=== PATIENT | male | born 1945 | race Caucasian/White ===

== ENCOUNTER 2022-05-21 13:14 | Emergency (ER) | payer OTHER ==
--- OUTSIDE RECORDS SUMMARY | 2022-05-21 13:16 | XMS REPORT | Continuity of Care Document ---
:1945 Author Organization [facility] t Address [address] [place] [address] Care Team Providers Name Role Phone BALJINDER DUMONT Attending Clinician Unavailable BALJINDER DUMONT Attending Clinician Unavailable ÁLVARO PERES Attending Clinician Unavailable Álvaro Novoa Attending Clinician BALJINDER DUMONT Admitting Clinician Unavailable Payers Payer Name Policy Type Policy Number Effective Date Expiration Date S ource [employer] MEDICARE O [id number] 2020 POS PPO 00:00:00 MEDICARE PLAN PPO [id number] - [employer] Problems This patient has no known problems. Allergies, Adverse Reactions, Alerts Allergy Allergy Status Severity Reaction(s) Onset Inactive Treating Comm ents Source Name Type Date Date Clinician LISINOPR DRUG Active High COUGH 2020-0 Univers [place] INGREDI 1- ity of 00:00: [place] 00 [facility] Lisinopr Propensi Active Cough 2020-0 Univer s il ty to 10-03 ity of adverse 00:00: [place] reaction 00 [facility] NO KNOWN Drug Active Univers ALLERGIE Class ity of S [facility] Social History Social Habit Start Date Stop Date Quantity Comments Source Exposure to Not sure [facility] SARS-CoV-2 (event) Medica l Branch Tobacco use and 2020-10-03 2020-10-03 Never used Universit y of [place] exposure 00:00:00 00:00:00 Medical [place] Sex Assigned At [address] [facility] 00[facility] Smoking Status Start Date Stop Date Source Former smoker 2020-10-03 00:00:00 2020-10-03 00:00:00 Universi ty [facility] [place] Medical [place] Medications Ordered Filled Start Stop Current Ordering Indication Dosage Frequency Signature Comments Components Source Medication Medication Date Date Medication? Clinician (SIG) Name Name metoprolol Yes 50mg Take 50 mg U nivers tartrate 50 - by mouth 2 it y of mg tablet 20:45: (two) [place] 21 times Medical daily. Branch atorvastati Yes 20mg Take 20 mg Univers n 20 mg 10-03 by mouth ity of tablet 20:45: at [place] 21 bedtime. Medical Branch vit 0 Yes Take by Univers C/ascorb - mouth. ity of sod/multivi 20:45: [place] t-min Medical (VITAMIN Branch C-MULTIVITA MIN-MINERAL ORAL) metoprolol Yes 50mg Take 50 mg U nivers tartrate 50 10-03 by mouth 2 it y of mg tablet 20:45: (two) [place] 21 times Medical daily. Branch atorvastati Yes 20mg Take 20 mg Univers n 20 mg 10-03 by mouth ity of tablet 20:45: at [place] 21 bedtime. Medical Branch vit Yes Take by Univers C/ascorb 10-03 mouth. ity of sod/multivi 20:45: [place] t-min Medical (VITAMIN Branch C-MULTIVITA MIN-MINERAL ORAL) metoprolol Yes 50mg Take 50 mg U nivers tartrate 50 10-03 by mouth 2 it y of mg tablet 20:45: (two) [place] 21 times Medical daily. Branch atorvastati Yes 20mg Take 20 mg Univers n 20 mg 10-03 by mouth ity of tablet 20:45: at [place] 21 bedtime. Medical Branch vit 0 Yes Take by Univers C/ascorb 10-03 mouth. ity of sod/multivi 20:45: [place] t-min 21 Medical (VITAMIN Branch C-MULTIVITA MIN-MINERAL ORAL) Vital Signs Vital Name Observation Time Observation Value Comments Source Systolic blood 2020-10-03 20:43:00 108 mm[Hg] Univjacob obrien of [place] pressure Medical [place] Diastolic blood 2020-10-03 20:43:00 68 mm[Hg] Unive rsjenna of [place] pressure Medical Branch Heart rate 2020-10-03 20:43:00 77 /min General acute hospital Body height 2020-10-03 20:43:00 177.8 cm General acute hospital Body weight 2020-10-03 20:43:00 102.967 kg General acute hospital BMI 2020-10-03 20:43:00 32.57 kg/m2 General acute hospital Procedures Procedure Date / Time Performed Performing Clinician Sourc e XR FEMUR 2 VW RIGHT 2020-10-03 21:17:35 Álvaro Peres General acute hospital Plan of Care Planned Activity Planned Date Details Comments Source Future Scheduled 2022-05-14 INFLUENZA VACCINE (#1) [facility] 00:00:00 [code = INFLUENZA Medical Ce nter VACCINE (#1)] Future Scheduled 2021-09-[address] [facility] 00:00:00 WELLNESS (YEAR 2 or Medical Center FIRST YEAR if no IPPE) [code = MEDICARE ANNUAL WELLNESS (YEAR 2 or FIRST YEAR if no IPPE)] Future Scheduled 2021-09-[address] [facility] 00:00:00 (12+) [code = Medical Center DEPRESSION SCREENING (12+)] Future Scheduled 2021-09-13 FALLS RISK SCREENING [facility] 00:00:00 [code = FALLS RISK Medical C enter SCREENING] Future Scheduled 2012 PNEUMOCOCCAL 65+ YRS ([address] [facility] 00:00:00 - PCV) [code = Medical Cente r PNEUMOCOCCAL 65+ YRS (1 - PCV)] Future Scheduled 1997 SHINGLES VACCINES ([address] [facility] 00:00:00 2) [code = SHINGLES Medical Center VACCINES (1 of 2)] Future Scheduled 1966 DTAP/TDAP/TD VACCINES [facility] 00:00:00 (1 - Tdap) [code = Medical C enter DTAP/TDAP/TD VACCINES (1 - Tdap)] Future Scheduled 1965 HEPATITIS C SCREENING [facility] 00:00:00 [code = HEPATITIS C Medical Center SCREENING] Future Scheduled 1948-03-26 COVID-19 VACCINE (#1) [facility] 00:00:00 [code = COVID-[address] VACCINE (#1)] Future Scheduled 1947 CT Colonography (combo) [facility] 00:00:00 [code = CT Colonography [facility] (combo)] Future Scheduled 1947 Screening for malignant [facility] 00:00:00 neoplasm of colon Medical Ce nter (procedure) [code = 258386071] Future Scheduled 1947 Screening for malignant [facility] Test 00:00:00 neoplasm of colon Medical Ce nter (procedure) [code = 999116156] Future Scheduled 1947 Screening for malignant [facility] Test 00:00:00 neoplasm of colon Medical Ce nter (procedure) [code = 342399288] Future Scheduled 1947 Screening for malignant [facility] Test 00:00:00 neoplasm of colon Medical Ce nter (procedure) [code = 928255906] Future Scheduled 1945 Sigmoidoscopy [code = [facility] 00:00:00 Sigmoidoscopy] Medical Cente r Encounters Start End Encounter Admission Attending Care Care Encounter Source Date/Time Date/Time Type Type Clinicians Facility Department ID 2021-10-27 Outpatient VIRGINIA ANGEL Surgery [id number] [facility] 16:59:33 BALJINDER 2021-10-20 2021-10-20 Outpatient MARA DUMONT [facility] [id number] [facility] 08:31:10 12:26:20 BALJINDER barton of Medicin e 2021-05-14 2021-05-14 Outpatient Zelda PERES [facility] [id number] Univers 14:30:00 14:30:00 ÁLVARO [id number] [facility] 2021-05-14 2021-05-14 Outpatient Zelda PERES [facility] [id number] Univers 14:30:00 14:30:00 ÁLVARO [facility] 2020-10-03 2020-10-03 [facility] [id number] Univers 15:17:35 23:59:00 Encounter Álvaro [facility] [id number] ity of Surgical [id number] [place] as Specialti [id number] [facility] [address] [place] [address] 2020-10-03 2020-10-03 Outpatient R JA [facility] [id number] Univers 15:00:00 15:00:00 ÁLVARO [facility] 2020-10-03 2020-10-03 Office Ja SCCLEMENTE [id number] Univers 14:31:25 14:46:25 Visit Álvaro [facility] [id number] it y of Surgical [id number] [place] as Specialti [id number] Id dical es [address] [place] Des[place] Results Test Description Test Time Test Comments Results Result Sour e Comments XR FEMUR 2 VW 2020-10-03 No signs of University of RIGHT 21:17:52 fracture or [place] Medical dislocation no Branch soft tissue masses or lesions noted
--- NOTE | 2022-05-21 14:20 | RAD REPORT ---
EXAM DESCRIPTION: US - Extremity Venous Uni Ltd - 05/21/2022 1:49 pm CLINICAL HISTORY: PAIN COMPARISON: None. TECHNIQUE: Real-time sonographic evaluation of the right lower extremity deep venous systems was per formed. FINDINGS: Normal compressibility, flow augmentation, phasic flow and spontaneous flow are identified in the right lower extremity common femoral, superficial femoral, popliteal and posterior tibial vei ns. No intraluminal filling defects seen. IMPRESSION: No DVT in the right lower extremity.
[2022-05-21 14:21] LABS: Absolute Lymphocytes (CBC) 1.4 K/uL (0.7-4.9); Hematocrit 46.8 % (39.6-49.0); Lymphocytes % 20.3 % (15.3-44.8); MPV 7.9 fL (7.6-11.3); RBC Red Blood Cell Count 5.71 M/uL (4.33-5.43)
[2022-05-21 14:42] LABS: Albumin 3.9 g/dL (3.4-5.0); Bilirubin Direct 0.3 mg/dL (0-0.2); Magnesium 2.1 mg/dL (1.8-2.4); Potassium 3.8 mmol/L (3.5-5.1); Troponin High Sensitivity 5.5 pg/mL (<58.9)
[2022-05-21] MEDS ORDERED: LEVALBUTEROL 1.25 MG/3 ML NEB ONE (15:02)
[2022-05-21 15:06] LABS: Protime INR 0.97
--- NOTE | 2022-05-21 16:07 | RAD REPORT ---
EXAM DESCRIPTION: CT - Chest For Pe Angio - 05/21/2022 3:31 pm CLINICAL HISTORY: shortness of breath COMPARISON: No comparisons TECHNIQUE: Dynamically enhanced 3 mm thick images of the chest were obtained during administration o f approximately 150mL Isovue 370 IV contrast. Coronal and oblique MIP reconstruction images were gene rated and reviewed. Exam utilizes a protocol to evaluate the pulmonary arterial tree. All CT scans are performed using dose optimization technique as appropriate and may include automated exposure control or mA/KV adjustment according to patient size. FINDINGS: No pulmonary emboli are identified. The aorta as imaged shows no acute or suspicious finding. No pericardial thickening or effusion. A grossly 6 centimeter area of airspace opacification is present in the medial left lung base. The am orphous configuration is most consistent with an acute pneumonia. This could be infectious or aspirat ion. A few punctate areas of airspace opacification are scattered elsewhere in the lower lung cross. Minimal areas of nodularity are present less than 5 mm in size. No pleural effusions. A few small ar eas of noncalcified pleural plaquing or thickening seen. No mediastinal or hilar suspicious masses. No chest wall masses or abnormal axillary lymphadenopathy. IMPRESSION: No pulmonary emboli identified. Airspace opacification in the medial left lung base consistent with pneumonia. This could be infectio us or possibly aspiration.
--- NOTE | 2022-05-21 16:14 | RAD REPORT ---
EXAM DESCRIPTION: RAD - Chest Single View - 05/21/2022 3:11 pm CLINICAL HISTORY: SOB COMPARISON: Two view chest 03/12/2022 TECHNIQUE: AP portable chest image was obtained 05/21/2022 3:11 pm . FINDINGS: No peripheral infiltrate or mass. Surgical clips overlie the chest and mediastinum. Inters titial pattern matches comparison. Failure and volume overload are not seen. Heart and vasculature are normal. No measurable pleural effusion and no pneumothorax. No acute bony abnormality seen. No acute aortic findings suspected. IMPRESSION: No acute cardiopulmonary process. No significant change from comparison study.
--- NOTE | 2022-05-21 16:39 | EDPHYS ---
Physician Documentation [facility] Name: Romero Schilling Age: 76 yrs Sex: Male : 1945 Arrival Date: 05/21/2022 Time: 13:17 Bed 10 Private MD: ED Physician Jeff Nino HPI: 05/21 16:35 This 76 yrs old Male presents to ER via Ambulatory with complaints of Breathing jmm Difficulty. 16:35 The patient has shortness of breath at rest. Onset: The symptoms/episode began/occurred jmm gradually, 1 week(s) ago. Duration: The symptoms are continuous, and are steadily getting worse. The patient's shortness of breath is aggravated by exertion. Associated signs and symptoms: Pertinent positives: non-productive cough, Pertinent negatives: fever. The patient has not experienced similar symptoms in the past. Historical: - Allergies: 13:27 No Known Allergies; ld1 - Home Meds: 13:27 metoprolol tartrate 25 mg Oral tab 1 tab 2 times per day [Active]; atorvastatin 10 mg ld1 oral tab 1 tab once daily [Active]; Cholestyramine Light 4 gram oral powd 1 scoop 2 times per day [Active]; - PMHx: 13:27 Hypertensive disorder; Hypercholesterolemia; ld1 13:28 Myocardial infarction; ld1 - PSHx: 13:27 Heart bypass; ld1 - Immunization history:: Adult Immunizations up to date, Client reports receiving the 2nd dose of the Covid vaccine. - Social history:: Smoking status: Patient denies any tobacco usage or history of. Patient uses alcohol, occasionally. ROS: 16:35 Constitutional: Positive for fatigue. jmm 16:35 Respiratory: Positive for cough, shortness of breath. 16:35 MS/extremity: Positive for pain. 16:35 All other systems are negative. Exam: 15:45 ECG was reviewed by the Attending Physician. jmm 16:35 Constitutional: This is a well developed, well nourished patient who is awake, alert, jmm and in no acute distress. Head/Face: atraumatic. Eyes: EOMI, no conjunctival erythema appreciated ENT: Moist Mucus Membranes Neck: Trachea midline, Supple Chest/axilla: Normal chest wall appearance and motion. Cardiovascular: Regular rate and rhythm. No edema appreciated Respiratory: Normal respirations, no respiratory distress appreciated Abdomen/GI: Non distended Back: Normal ROM Skin: General appearance color normal 16:35 Musculoskeletal/extremity: No erythema or induration appreciated of the right thigh, compartments are soft, full dorsalis pedis pulse, neurovascular intact. 16:35 Skin: Appearance: Color: normal in color. 16:35 Neuro: Orientation: is normal, Mentation: is normal, Memory: is normal. 16:35 Psych: Behavior/mood is pleasant, cooperative. Vital Signs: 13:28 BP 119 / 55; Pulse 77; Resp 18; Temp 97.5(TE); Pulse Ox 95% on R/A; Weight 106.14 kg; ld1 Height 5 ft. 10 in. (177.80 cm); Pain 0/10; 15:26 BP 116 / 56; Pulse 78; Resp 18; Pulse Ox 97% on R/A; eh3 13:28 Body Mass Index 33.58 (106.14 kg, 177.80 cm) ld1 MDM: 13:31 Patient medically screened. randall 16:37 Data reviewed: vital signs, nurses notes. Counseling: I had a detailed discussion with randall the patient and/or guardian regarding: the historical points, exam findings, and any diagnostic results supporting the discharge/admit diagnosis, lab results, radiology results, the need for outpatient follow up, to return to the emergency department if symptoms worsen or persist or if there are any questions or concerns that arise at home. ED course: Vital signs are normal. CT revealed a pneumonia most likely. Patient prescribed oral antibiotics and otherwise given strict return precautions. Patient understood agrees plan of care.. 05/21 13:26 Order name: Basic Metabolic Panel; Complete Time: 14:49 05/21 13:26 Order name: CBC with Diff; Complete Time: 14:33 05/21 13:26 Order name: LFT's; Complete Time: 14:49 05/21 13:26 Order name: Magnesium; Complete Time: 14:49 05/21 13:26 Order name: NT PRO-BNP; Complete Time: 14:49 05/21 13:26 Order name: PT-INR; Complete Time: 15:10 05/21 13:26 Order name: Troponin HS; Complete Time: 14:49 05/21 13:26 Order name: XRAY Chest (1 view); Complete Time: 16:20 05/21 13:26 Order name: US Extremity Venous Unilateral Ltd; Complete Time: 14:22 05/21 13:32 Order name: SARS-COV-2 RT PCR (Document "Date of Onset" if Symptomatic); Complete Time: [facility] 15:05/21 13:32 Order name: Influenza Screen (a \\T\\ B); Complete Time: 14:49 [facility] 05/21 15:11 Order name: CT Chest For PE Angio; Complete Time: 16:08 [facility] 05/21 13:26 Order name: EKG; Complete Time: 13:26 05/21 13:26 Order name: Cardiac monitoring; Complete Time: 14:10 [facility] 05/21 13:26 Order name: EKG - Nurse/Tech; Complete Time: 14:52 [facility] 05/21 13:26 Order name: IV Saline Lock; Complete Time: 14:09 [facility] 05/21 13:26 Order name: Labs collected and sent; Complete Time: 14:09 [facility] 05/21 13:26 Order name: O2 Per Protocol; Complete Time: 14:09 05/21 13:26 Order name: O2 Sat Monitoring; Complete Time: 14:09 ld EC:45 Rate is 76 beats/min. Rhythm is regular. QRS [place] is Normal. MO interval is normal. QRS jmm interval is normal. QT interval is normal. T waves are Flattened in lead III. No ST changes noted. Reviewed by me. Administered Medications: 14:55 Drug: Xopenex (levalbuterol) (3) 1.25 mg Route: Inhalation; 3 15:26 Follow up: Response: Marked relief of symptoms 3 16:31 CANCELLED (Duplicate Order): Rocephin (cefTRIAXone) 1 grams IV at calculated rate once; jmm Given slow IV push per pharmacy instructions 16:50 Drug: Zithromax (azithromycin) 500 mg Route: PO; 3 17:12 Follow up: Response: No adverse reaction 3 16:50 Drug: Rocephin (cefTRIAXone) 1 grams Route: IM; Site: right ventrogluteal; eh3 17:13 Follow up: Response: No adverse reaction 3 Disposition: 16:22 Co-signature as Attending Physician, Jeff Nino DO I agree with the assessment and ms3 plan of care. Disposition Summary: 05/21/22 16:38 Discharge Ordered Location: Home [facility] Condition: Stable [facility] Diagnosis - Community-acquired pneumonia [facility] Followup: [facility] - With: Private Physician - When: 2 - 3 days - Reason: Recheck today's complaints, Continuance of care, Re-evaluation by your physician Discharge Instructions: - Discharge Summary Sheet [facility] - Community-Acquired Pneumonia, Adult [facility] Forms: - Medication Reconciliation Form [facility] - Thank You Letter [facility] - Antibiotic Education [facility] - Prescription Opioid Use [facility] Prescriptions: - cefdinir 300 mg Oral capsule - take 1 capsule by ORAL route every 12 hours for 10 days; 20 capsule; Refills: jm 0, Product Selection Permitted - Zithromax Z-Liborio 250 mg Oral Tablet - take 1 tablet by ORAL route as directed for 5 days Day 1 - take two (2) tablets [facility] one time. Day 2, 3, 4 , 5 take one (1) tablet once daily.; 6 tablet; Refills: 0, Product Selection Permitted - albuterol sulfate 90 mcg/actuation Inhalation HFA aerosol inhaler - inhale 2 puff by INHALATION route every 4 hours; 1 Pump; Refills: 0, Product jm Selection Permitted Signatures: Dispatcher [employer] EDMS Anders Ren PA PA jmm Sims, Marcus, DO DO ms3 Lindsey Hahn, RN RN ld1 Silvia Painter RN RN eh3 Corrections: (The following items were deleted from the chart) 16:31 16:09 Rocephin (cefTRIAXone) 1 grams IV at calculated rate once; Given slow IV push per [facility] pharmacy instructions ordered. [facility]
--- NOTE | 2022-05-21 16:39 | ER ---
Nurse's Notes [facility] Name: Romero Schilling Age: 76 yrs Sex: Male : 1945 Arrival Date: 05/21/2022 Time: 13:17 Bed 10 Private MD: Diagnosis: Community-acquired pneumonia Presentation: 05/21 13:28 Chief complaint: Patient states: Pt was at Dr Perez office. Pt c/o SOB - Dr. Office ld1 sent pt to ER due to low O2. "Concerned about blood clot in lungs." SpO2 93% RA upon arrival to ER. Coronavirus screen: At this time, the client does not indicate any symptoms associated with coronavirus-19. Ebola Screen: No symptoms or risks identified at this time. Initial Sepsis Screen: Does the patient meet any 2 criteria? No. Patient's initial sepsis screen is negative. Does the patient have a suspected source of infection? No. Patient's initial sepsis screen is negative. Risk Assessment: Do you want to hurt yourself or someone else? Patient reports no desire to harm self or others. Onset of symptoms was May 21, 2022. 13:28 Method Of Arrival: Ambulatory ld1 13:28 Acuity: LEANDER 3 ld1 Triage Assessment: 13:28 General: Appears in no apparent distress. comfortable, Behavior is calm, cooperative, ld1 appropriate for age. Pain: Denies pain. EENT: No signs and/or symptoms were reported regarding the EENT system. Neuro: Level of Consciousness is awake, alert, obeys commands, Oriented to person, place, time, situation. Cardiovascular: Capillary refill < 3 seconds Patient's skin is warm and dry. Respiratory: Reports shortness of breath at rest on exertion Airway is patent Respiratory effort is even, unlabored, Onset: The symptoms/episode began/occurred yesterday, the patient has mild shortness of breath. GI: Abdomen is round non-distended. Historical: - Allergies: 13:27 No Known Allergies; ld1 - Home Meds: 13:27 metoprolol tartrate 25 mg Oral tab 1 tab 2 times per day [Active]; atorvastatin 10 mg ld1 oral tab 1 tab once daily [Active]; Cholestyramine Light 4 gram oral powd 1 scoop 2 times per day [Active]; - PMHx: 13:27 Hypertensive disorder; Hypercholesterolemia; ld1 13:28 Myocardial infarction; ld1 - PSHx: 13:27 Heart bypass; ld1 - Immunization history:: Adult Immunizations up to date, Client reports receiving the 2nd dose of the Covid vaccine. - Social history:: Smoking status: Patient denies any tobacco usage or history of. Patient uses alcohol, occasionally. Screenin:11 Abuse screen: Denies threats or abuse. Denies injuries from another. Nutritional eh3 screening: No deficits noted. Tuberculosis screening: No symptoms or risk factors identified. Fall Risk None identified. Assessment: 17:08 Reassessment: Patient is alert, oriented x 3, equal unlabored respirations, skin eh3 warm/dry/pink. Patient states symptoms have improved. Cardiovascular: Rhythm is regular. Respiratory: Airway is patent Respiratory effort is even, unlabored, Breath sounds are clear bilaterally. Vital Signs: 13:28 BP 119 / 55; Pulse 77; Resp 18; Temp 97.5(TE); Pulse Ox 95% on R/A; Weight 106.14 kg; ld1 Height 5 ft. 10 in. (177.80 cm); Pain 0/10; 15:26 BP 116 / 56; Pulse 78; Resp 18; Pulse Ox 97% on R/A; eh3 13:28 Body Mass Index 33.58 (106.14 kg, 177.80 cm) ld1 ED Course: 13:17 Patient arrived in ED. rg4 13:21 Jeff Nino DO is Attending Physician. ms3 13:26 Anders Ren PA is PHCP. ld1 13:28 Arm band placed on right wrist. ld1 13:30 Triage completed. ld1 13:41 US Extremity Venous Unilateral Ltd In Process Unspecified. EDMS 14:09 Influenza Screen (a \\T\\ B) Sent. eh3 14:09 SARS-COV-2 RT PCR (Document "Date of Onset" if Symptomatic) Sent. eh3 14:10 Basic Metabolic Panel Sent. eh3 14:10 CBC with Diff Sent. eh3 14:10 LFT's Sent. eh3 14:10 Magnesium Sent. eh3 14:10 NT PRO-BNP Sent. eh3 14:10 PT-INR Sent. eh3 14:10 Troponin HS Sent. eh3 15:13 XRAY Chest (1 view) In Process Unspecified. EDMS 15:33 CT Chest For PE Angio In Process Unspecified. EDMS 15:37 Marlys Martínez, RN is Primary Nurse. iw 17:11 Patient has correct armband on for positive identification. Bed in low position. Call eh3 light in reach. Side rails up X2. Adult w/ patient. 17:11 No provider procedures requiring assistance completed. IV discontinued, intact, eh3 bleeding controlled, No redness/swelling at site. Pressure dressing applied. Administered Medications: 14:55 Drug: Xopenex (levalbuterol) (3) 1.25 mg Route: Inhalation; eh3 15:26 Follow up: Response: Marked relief of symptoms eh3 16:31 CANCELLED (Duplicate Order): Rocephin (cefTRIAXone) 1 grams IV at calculated rate once; randall Given slow IV push per pharmacy instructions 16:50 Drug: Zithromax (azithromycin) 500 mg Route: PO; eh3 17:12 Follow up: Response: No adverse reaction eh3 16:50 Drug: Rocephin (cefTRIAXone) 1 grams Route: IM; Site: right ventrogluteal; eh3 17:13 Follow up: Response: No adverse reaction eh3 Medication: 17:12 VIS not applicable for this client. eh3 Outcome: 16:38 Discharge ordered by MD. [facility] 17:11 Discharged to home ambulatory, with family. eh3 17:11 Condition: stable 17:11 Discharge instructions given to patient, family, Instructed on discharge instructions, follow up and referral plans. medication usage, Demonstrated understanding of instructions, follow-up care, medications, Prescriptions given X 3. 17:12 Patient left the ED. eh3 Signatures: Dispatcher [employer] EDMS Anders Ren PA PA jmm Williams, Irene, RN RN iw Caitlin Foote rg4 Jeff Nino DO DO ms3 Lindsey Hahn RN RN ld1 Silvia Painter RN RN eh3 Corrections: (The following items were deleted from the chart) 17:11 17:08 Respiratory: Airway is patent Respiratory effort is even, unlabored, Breath eh3 sounds with wheezes bilaterally. eh3
[2022-05-21] MEDS ORDERED: CEFTRIAXONE 1000 MG/VIAL ONE (16:50)
[2022-05-21] MEDS ORDERED: AZITHROMYCIN 250 MG TAB ONE (16:50)
[2022-05-21 18:06] VITALS: TEMP 97.5
[2022-05-21 18:08] VITALS: BP 116/56; O2SAT 97
--- NOTE | 2022-05-22 13:57 | EKG ---
Test Date: 2022-05-21 Test Time: 14:22:46 Larry Operator: POORNIMA MEASUREMENT RESULTS: Intervals: Rate: 76 OH: 204 QRSD: 80 QT: 376 QTc: 423 [place]: P: 43 OH: 204 QRS: 14 T: 27 INTERPRETIVE STATEMENTS: Normal sinus rhythm with sinus arrhythmia Inferior infarct, age undetermined Possible Anterior infarct, age undetermined Abnormal ECG Compared to ECG 04/10/2006 03:15:24 No significant changes Electronically Signed On 05-22-22 13:55:31 CDT by Raudel Mazariegos
== END 2022-05-21 17:12 | disposition home or self-care (01) ==
LOC: ER 13:14
DX: J18.8 Other pneumonia, unspecified organism (principal); Z20.822 Contact with and (suspected) exposure to COVID-19; I10 Essential (primary) hypertension; I25.2 Old myocardial infarction; Z95.1 Presence of aortocoronary bypass graft
CPT/HCPCS: 93005; 85025; 80048; 36415; 83735; 85610; 80076; 84484; 83880; 87804 ×2; 71275; 71045; 93971; 96372; 99284; U0003; Q9967; J7614

== ENCOUNTER 2023-01-30 17:51 | Inpatient (IN) | payer OTHER ==
--- OUTSIDE RECORDS SUMMARY | 2023-01-30 17:55 | XMS REPORT | Continuity of Care Document ---
:1945 Author Organization [facility] t Address [address] [place] [address] Care Team Providers Name Role Phone BALJINDER DUMONT Attending Clinician Unavailable KIM FUENTES Attending Clinician Unavailable CRISTINA HOOPER Attending Clinician Unavailable ASHANTI ROBLES Attending Clinician Unavailable LAB90 Attending Clinician Unavailable BALJINDER DUMONT Attending Clinician Unavailable ÁLVARO SÁNCHEZ Attending Clinician Unavailable Álvaro Novoa Attending Clinician BALJINDER DUMONT Admitting Clinician Unavailable Payers Payer Name Policy Type Policy Number Effective Date Expiration Date S ource AETNA MEDICARE HMO [id number] 2020 POS PPO 00:00:00 AETNA [place] P[place] 5 [id number] 2023 00:00:00 MEDICARE PLAN PPO [id number] - [employer] Problems Condition Condition Condition Status Onset Resolution Last Treating Co mments Source Name Details Category Date Date Treatment Clinician Date History of History of Disease Active Overview : Sloane detached detached 5-16 Formattin Sey bold retina retina 00:00: g of this - repair repair 00 note Externa might be l different from the original. Right side. Surgery in the past Hyperlipid Hyperlipid Disease Active K elsey emia emia 5-16 Seybold 00:00: - 00 Externa l SOB SOB Disease Active Sloane (shortness (shortness 5-16 Se ybold of breath) of breath) 00:00: - on on Externa exertion exertion l Chronic Chronic Disease Active [place]ane obstructiv obstructiv 5-16 Se ybold e e 00:00: - pulmonary pulmonary 00 Exte rna disease disease l with acute with acute exacerbati exacerbati on on Hypertensi Hypertensi Disease Active K elsey on on 01-26 Seybold 00:00: - 00 Externa l GERD GERD Disease Active Sloane (gastroeso (gastroeso 01-26 Se ybold phageal phageal 00:00: - reflux reflux 00 Externa disease) disease) l Glaucoma Glaucoma Disease Active Fletcherse y 01-26 Seybold 00:00: - 00 Externa l CAD CAD Disease Active Overview: Sloane (coronary (coronary 09-13 Formattin S eybold artery artery 00:00: g of this - disease) disease) 00 note [employer] a of artery of artery might be l bypass bypass different graft graft from the original. CABG 4 vessel in 2206 History of History of Disease Active K elseema four four 09-13 Seybold vessel vessel 00:00: - coronary coronary 00 [employer] a artery artery l bypass bypass graft graft Allergies, Adverse Reactions, Alerts Allergy Allergy Status Severity Reaction(s) Onset Inactive Treating Comm ents Source Name Type Date Date Clinician Lisinopr Propensi Active Cough S[place]ane il ty to 01-26 Seybold adverse 00:00: - reaction 00 Externa s l LISINOPR DRUG Active High COUGH Univers IL INGREDI 1-21 ity of 00:00: [place] 00 [facility] Lisinopr Propensi Active Cough Univer s il ty to -21 ity of adverse 00:00: [place] reaction 00 Medical s Branch Candido Propensi Active Cough [place] Inhibito ty to 03-24 Seybold rs adverse 00:00: - reaction 00 Externa s l NO KNOWN Drug Active Univers ALLERGIE Class ity of S [facility] Social History Social Habit Start Date Stop Date Quantity Comments Source Gender identity Sloane Ceballos ybold - External Sexual orientation Sloane Pierson - External History of tobacco Cigarette Smoker Sloane Pierson - use External Exposure to Not sure University of SARS-CoV-2 (event) [facility] Cigarette 2023-01-26 2023-01-26 Sloane Pierson - pack-years 00:00:00 00:00:00 External Tobacco use and 2023-01-26 2023-01-26 Smokeless tobacco Sourav juarez Seybold - exposure 00:00:00 00:00:00 non-user External Alcohol intake 2023-01-26 2023-01-26 Current drinker Asher Pierson - 00:00:00 00:00:00 of alcohol External (finding) History of Social 2023-01-26 2023-01-26 Sloane Ceballosybold - function 00:00:00 00:00:00 External Education 2023-01-26 2023-01-26 13 Sloane Seybold - 00:00:00 00:00:00 External Tobacco Comment 2023-01-26 2023-01-26 Quit 10 years ago Sourav bostonimani ybold - 00:00:00 00:00:00 External Alcohol Comment 2023-01-26 2023-01-26 occasional beer Marlys imani Ceballosybold - 00:00:00 00:00:00 External Cigarettes smoked 2023-01-26 2023-01-26 Sloane Ceballosybold - current (pack per 00:00:00 00:00:00 Externa l day) - Reported Sex Assigned At [address] 00:00[facility]00 00:00:00 [facility] Smoking Status Start Date Stop Date Source Ex-smoker 2023-01-26 00:00:00 2023-01-26 00:00:00 [place] - External Medications Ordered Filled Start Stop Current Ordering Indication Dosage Frequency Signature Comments Components Source Medication Medication Date Date Medication? Clinician (SIG) Name Name Venkata No [id number] 40mg S[place]ane estrada 01-26 Seybold Acetonide 16:15: 16:26 - (KENALOG) 00 :00 Externa 40 mg/mL l Triamcinmundo 2022- No [id number] 40mg 40 mg, Sloane estrada 01-26 intramuscu Seybold Acetonide 16:15: 16:26 lar, ONCE, - (KENALOG) 00 :00 On Tue Externa 40 mg/mL 01/26/23 at l 1115, For 1 dose Metoprolol Yes 25mg Take 0.5 Fletcher sey Tartrate 5-16 tablets Seybold (LOPRESSOR) 10:39: (25 mg - 50 MG oral 40 total) by Exte rna Tablet mouth 2 l times daily Atorvastati Yes 20mg Take 1 Marlys ey n Calcium 5-16 tablet (20 Seyb old 20 MG oral 10:39: mg total) - Tablet 40 by mouth Externa daily l Cholestyram Yes 4g Take 1 Marlys ey ine 4 5-16 packet (4 Seybold GM/DOSE 10:39: g total) - oral Powder 40 by mouth Exte rna daily l Turmeric Yes 1{capsu Take 1 Marlys ey 500 MG oral 5-16 le} capsule by Se ybold Capsule 10:39: mouth - 40 daily Externa l Ascorbic Yes 1000mg Take 1 Kelse y Acid 5-16 tablet Seybold (Vitamin C) 10:39: (1,000 mg - 1000 MG 40 total) by Externa oral Tablet mouth l daily Esomeprazol Yes 20mg Take 1 Marlys ey e Magnesium 5-16 capsule Seybo ld 20 MG oral 10:39: (20 mg - Delayed 40 total) by Externa Release mouth l Capsule every morning (before breakfast) Aspirin 81 Yes 81mg Take 1 Kelse y MG oral 5-16 tablet (81 Seybol d Tablet 10:39: mg total) - Delayed 40 by mouth Externa Response daily l [place]-3 Yes 1{capsu Take 1 Kelse y 1000 MG 5-16 le} capsule by Seybol d oral 10:39: mouth - Capsule 40 daily Externa l Timolol Yes 1[drp] Place 1 Kelse y Maleate Gel 5-16 drop into Sey bold 0.25 % 10:39: the left - ophthalmic 40 eye daily Exte rna Gel Forming l Solution prednisoLON Yes 1[drp] Place 1 K elsey E Acetate 1 5-16 drop into Sey bold % 10:39: the right - ophthalmic 40 eye daily Exte rna Suspension l Brimonidine Yes 1[drp] Place 1 K elsey Tartrate-Ti 5-16 drop into Sey bold molol 10:39: the right - 0.2-0.5 % 40 eye daily Exter na ophthalmic l Solution Multiple Yes 1{capsu Take 1 Marlys ey Vitamins-Mi 5-16 le} capsule by Se ta nerals 10:39: mouth - (PRESERVISI 40 daily Externa ON AREDS 2 l OR) Fluticasone Yes [id number] 1{puff} Inhale 1 [place]ane -Salmeterol 5-16 puff into [place] escobar (Advair 00:00: the lungs - Diskus) 00 2 times Externa 250-50 daily l MCG/ACT inhalation AEROSOL POWDER, BREATH ACTIVATED Albuterol Yes [id number] 2{puff} Q.25D Inhale 2 [place]ane HFA 108 (90 5-16 puffs into Se ta Base) 00:00: the lungs - MCG/ACT IN 00 every 6 [employer] a AERS hours as l needed for wheezing metoprolol Yes 50mg Take 50 mg U nivers tartrate 50 10-03 by mouth 2 it y of mg tablet 20:45: (two) [place] [id number] times Medical daily. Branch atorvastati Yes 20mg Take 20 mg Univers n 20 mg 10-03 by mouth ity of tablet 20:45: at [place] [address] bedtime. Medical Branch vit Yes Take by Univers C/ascorb - mouth. ity of sod/multivi 20:45: [place] t-min 21 Medical (VITAMIN Branch C-MULTIVITA MIN-MINERAL ORAL) metoprolol Yes 50mg Take 50 mg U nivers tartrate 50 10-03 by mouth 2 it y of mg tablet 20:45: (two) [place] 21 times Medical daily. Branch atorvastati Yes 20mg Take 20 mg Univers n 20 mg 10-03 by mouth ity of tablet 20:45: at [place] 21 bedtime. Medical Branch vit Yes Take by Univers C/ascorb - mouth. ity of sod/multivi 20:45: [place] t-min 21 Medical (VITAMIN Branch C-MULTIVITA MIN-MINERAL ORAL) metoprolol Yes 50mg Take 50 mg U nivers tartrate 50 - by mouth 2 it y of mg tablet 20:45: (two) [place] 21 times Medical daily. Branch atorvastati Yes 20mg Take 20 mg Univers n 20 mg 10-03 by mouth ity of tablet 20:45: at [place] 21 bedtime. Medical Branch vit Yes Take by Univers C/ascorb 10-03 mouth. ity of sod/multivi 20:45: [place] t-min 21 Medical (VITAMIN Branch C-MULTIVITA MIN-MINERAL ORAL) Immunizations Ordered Immunization Filled Immunization Date Status Commen ts Source Name Name Seasonal Trivalent 2019-07-06 Completed Solane Pierson Influenza Vaccine, 00:00:00 - Exte rnal Adjuvanted, Preserve Pneumococcal Vaccine, 2019-07-06 Completed Fletcher Pierson Polysaccharide 00:00:00 - External Tdap- (Boostrix, 2019-01-04 Completed Sloane diallobougo Adacel) 00:00:00 - External Seasonal Trivalent 2018-06-29 Completed Sloane Pierson Influenza Vaccine, 00:00:00 - Exte rnal Adjuvanted, Preserve Pneumococcal Vaccine, 2018-06-29 Completed Fletcher Pierson Conjugate 13 00:00:00 - External Influenza Virus 2016-09-23 Completed Sloane ta Vaccine, High Dose, 00:00:00 - Ext ernal Age 65 And Up Influenza Virus 2013-11-02 Completed Sloane jimenezold Vaccine, High Dose, 00:00:00 - Ext ernal Age 65 And Up Shingles SQ 2013-03-13 Completed Sloane Roberto d (Zostavax) 00:00:00 - External Influenza Virus 2012-09-16 Completed [place]ane jimenezold Vaccine, Unspecified 00:00:00 - Ex ternal Formulation pneumococcal, 2011-06-30 Completed Sloane Nolasco old unspecified 00:00:00 - External formulation Influenza Virus 2011-06-24 Completed S[place]ane jimenezold Vaccine, Unspecified 00:00:00 - Ex ternal Formulation Influenza Virus 2010-07-01 Completed [place]ane jimenezold Vaccine, Unspecified 00:00:00 - Ex ternal Formulation Influenza Virus 2008-07-14 Completed [place] jimenezold Vaccine, Unspecified 00:00:00 - Ex ternal Formulation Influenza Virus 2006-06-20 Completed [place] jimenezold Vaccine, Unspecified 00:00:00 - Ex ternal Formulation Vital Signs Vital Name Observation Time Observation Value Comments Source Systolic blood 2023-01-26 15:35:00 130 mm[Hg] Sloane Ceballosybold - pressure External Diastolic blood 2023-01-26 15:35:00 62 mm[Hg] Asher boo Seybold - pressure External Heart rate 2023-01-26 15:35:00 89 /min Sloane Matthews eybold - External Body temperature 2023-01-26 15:35:00 36.56 Xin Marlys diallo Seybold - External Body height 2023-01-26 15:35:00 177.8 cm S[place]ane diallobold - External Body weight 2023-01-26 15:35:00 104.781 kg Sloane Matthews eybold - External BMI 2023-01-26 15:35:00 33.15 kg/m2 Sloane Matthews eybold - External Systolic blood 2020-10-03 20:43:00 108 mm[Hg] [email or web address] Diastolic blood 2020-10-03 20:43:00 68 mm[Hg] Unive rs[facility] of [email or web address] Heart rate 2020-10-03 20:43:00 77 /min [facility] Body height 2020-10-03 20:43:00 177.8 cm [facility] Body weight 2020-10-03 20:43:00 102.967 kg [facility] BMI 2020-10-03 20:43:00 32.57 kg/m2 [facility] Procedures Procedure Date / Time Performed Performing Clinician Nicolas e XR FEMUR 2 VW RIGHT 2020-10-03 21:17:35 Álvaro Sánchez [facility] Plan of Care Planned Activity Planned Date Details Comments Source Future Scheduled 2022-09-[address] [facility] 00:00:00 (12+) [code = Medical Center DEPRESSION SCREENING (12+)] Future Scheduled 2022-09-13 FALLS RISK SCREENING [facility] 00:00:00 [code = FALLS RISK Medical C enter SCREENING] Future Scheduled 2022-09-[address] [facility] 00:00:00 (12+) [code = Medical Center DEPRESSION SCREENING (12+)] Future Scheduled 2022-09-13 FALLS RISK SCREENING [facility] 00:00:00 [code = FALLS RISK Medical C enter SCREENING] Future Scheduled 2022-05-14 INFLUENZA VACCINE (#1) [facility]00 [code = INFLUENZA Medical Ce nter VACCINE (#1)] Future Scheduled 2022-05-14 INFLUENZA VACCINE (#1) [facility] 00:00:00 [code = INFLUENZA Medical Ce nter VACCINE (#1)] Future Scheduled 2022-05-14 INFLUENZA VACCINE (#1) [facility] 00:00:00 [code = INFLUENZA Medical Ce nter VACCINE (#1)] Future Scheduled 2022-05-14 INFLUENZA VACCINE (#1) [facility] 00:00:00 [code = INFLUENZA Medical Ce nter VACCINE (#1)] Future Scheduled 2022-05-14 INFLUENZA VACCINE (#1) [facility] 00:00:00 [code = INFLUENZA Medical Ce nter VACCINE (#1)] Future Scheduled 2022-05-14 INFLUENZA VACCINE (#1) [facility] 00:00:00 [code = INFLUENZA Medical Ce nter VACCINE (#1)] Future Scheduled 2021-09-[address] [facility] 00:00:00 WELLNESS (YEAR 2 or Medical Center FIRST YEAR if no IPPE) [code = MEDICARE ANNUAL WELLNESS (YEAR 2 or FIRST YEAR if no IPPE)] Future Scheduled 2021-09-[address] [facility] 00:00:00 WELLNESS (YEAR 2 or Medical Center FIRST YEAR if no IPPE) [code = MEDICARE ANNUAL WELLNESS (YEAR 2 or FIRST YEAR if no IPPE)] Future Scheduled 2021-09-[address] [facility] 00:00:00 WELLNESS (YEAR 2 or Medical Center FIRST YEAR if no IPPE) [code = MEDICARE ANNUAL WELLNESS (YEAR 2 or FIRST YEAR if no IPPE)] Future Scheduled 2021-09-[address] [facility] 00:00:00 WELLNESS (YEAR 2 or Medical Center FIRST YEAR if no IPPE) [code = MEDICARE ANNUAL WELLNESS (YEAR 2 or FIRST YEAR if no IPPE)] Future Scheduled 2021-09-[address] [facility] 00:00:00 WELLNESS (YEAR 2 or Medical Center FIRST YEAR if no IPPE) [code = MEDICARE ANNUAL WELLNESS (YEAR 2 or FIRST YEAR if no IPPE)] Future Scheduled 2021-09-[address] [...] RISK Medical C enter SCREENING] Future Scheduled 2021-09-[address] [facility] 00:00:00 (12+) [code = Medical Center DEPRESSION SCREENING (12+)] Future Scheduled 2021-09-13 FALLS RISK SCREENING [facility] 00:00:00 [code = FALLS RISK Medical C enter SCREENING] Future Scheduled 2021-09-[address] [facility] 00:00:00 (12+) [code = Medical Center DEPRESSION SCREENING (12+)] Future Scheduled 2021-09-13 FALLS RISK SCREENING [facility] 00:00:00 [code = FALLS RISK Medical C enter SCREENING] Future Scheduled 2021-09-[address] [...] 65+ YRS (1 - PCV)] Future Scheduled 2012 PNEUMOCOCCAL 65+ YRS ([address] [facility] 00:00:00 - PCV) [code = Medical Cente r PNEUMOCOCCAL 65+ YRS (1 - PCV)] Future Scheduled 2012 PNEUMOCOCCAL 65+ YRS ([address] [facility] 00:00:00 - PCV) [code = Medical Cente r PNEUMOCOCCAL 65+ YRS (1 - PCV)] Future Scheduled 2012 PNEUMOCOCCAL 65+ YRS ([address] [facility] 00:00:00 - PCV) [code = Medical Cente r PNEUMOCOCCAL 65+ YRS (1 - PCV)] Future Scheduled 2012 PNEUMOCOCCAL 65+ YRS ([address] [facility] 00:00:00 - PCV) [code = Medical Cente r PNEUMOCOCCAL 65+ YRS (1 - PCV)] Future Scheduled 2012 PNEUMOCOCCAL 65+ YRS ([address] [facility] 00:00:00 - PCV) [code = Medical Cente r PNEUMOCOCCAL 65+ YRS (1 - PCV)] Future Scheduled 1997 SHINGLES VACCINES ([address] [facility] 00:00:00 2) [code = SHINGLES Medical Center VACCINES (1 of 2)] Future Scheduled 1997 SHINGLES VACCINES ([address] [facility] 00:00:00 2) [code = SHINGLES Medical Center VACCINES (1 of 2)] Future Scheduled 1997 SHINGLES VACCINES ([address] [facility] 00:00:00 2) [code = SHINGLES Medical Center VACCINES (1 of 2)] Future Scheduled 1997 SHINGLES VACCINES ([address] [facility] 00:00:00 2) [code = SHINGLES Medical Center VACCINES (1 of 2)] Future Scheduled 1997 SHINGLES VACCINES ([address] [facility] 00:00:00 2) [code = SHINGLES Medical Center VACCINES (1 of 2)] Future Scheduled 1997 SHINGLES VACCINES ([address] [facility] 00:00:00 2) [code = SHINGLES Medical Center VACCINES (1 of 2)] Future Scheduled 1966 DTAP/TDAP/TD VACCINES [facility] 00:00:00 (1 - Tdap) [code = Medical C enter DTAP/TDAP/TD VACCINES (1 - Tdap)] Future Scheduled 1966 DTAP/TDAP/TD VACCINES [facility] 00:00:00 (1 - Tdap) [code = Medical C enter DTAP/TDAP/TD VACCINES (1 - Tdap)] Future Scheduled 1966 DTAP/TDAP/TD [facility]ACCINES [facility] 00:00:00 (1 - Tdap) [code = Medical C enter DTAP/TDAP/TD VACCINES (1 - Tdap)] Future Scheduled 1966 DTAP/TDAP/TD VACCINES [facility] 00:00:00 (1 - Tdap) [code = Medical C enter DTAP/TDAP/TD VACCINES (1 - Tdap)] Future Scheduled 1966 DTAP/TDAP/TD VACCINES [facility] 00:00:00 (1 - Tdap) [code = Medical C enter DTAP/TDAP/TD VACCINES (1 - Tdap)] Future Scheduled 1966 DTAP/TDAP/TD VACCINES [facility] 00:00:00 (1 - Tdap) [code = Medical C enter DTAP/TDAP/TD VACCINES (1 - Tdap)] Future Scheduled 1965 HEPATITIS C SCREENING [facility] 00:00:00 [code = HEPATITIS C Medical Center SCREENING] Future Scheduled 1965 HEPATITIS C [facility]CRE[facility]ING [facility] 00:00:00 [code = HEPATITIS C Medical Center SCREENING] Future Scheduled 1965 HEPATITIS C [facility]CRE[facility]ING [facility] 00:00:00 [code = HEPATITIS C Medical Center SCREENING] Future Scheduled 1965 HEPATITIS C [facility]CRE[facility]ING [facility] 00:00:00 [code = HEPATITIS C Medical Center SCREENING] Future Scheduled 1965 HEPATITIS C [facility]CRE[facility]ING [facility] 00:00:00 [code = HEPATITIS C Medical Center SCREENING] Future Scheduled 1965 HEPATITIS C [facility]CRE[facility] 00:00:00 [code = HEPATITIS C Medical Center SCREENING] Future Scheduled [address] [facility] 00:00:00 Counseling and Medical Cente r Screening (12+) [code = Tobacco Cessation Counseling and Screening (12+)] Future Scheduled [address] [facility] 00:00:00 Counseling and Medical Cente r Screening (12+) [code = Tobacco Cessation Counseling and Screening (12+)] Future Scheduled [address] [facility] 00:00:00 Counseling and Medical Cente r Screening (12+) [code = Tobacco Cessation Counseling and Screening (12+)] Future Scheduled [address] [facility] 00:00:00 Counseling and Medical Cente r Screening (12+) [code = Tobacco Cessation Counseling and Screening (12+)] Future Scheduled [address] [facility] 00:00:00 Counseling and Medical Cente r Screening (12+) [code = Tobacco Cessation Counseling and Screening (12+)] Future Scheduled 1948-03-26 COVID-19 VACCINE (#1) [facility] 00:[facility]:00 [code = COVID-[address] VACCINE (#1)] Future Scheduled 1948-03-26 COVID-19 VACCINE (#1) [facility] 00:00:00 [code = COVID-[address] VACCINE (#1)] Future Scheduled 1948-03-26 COVID-19 VACCINE (#1) [facility] 00:00:00 [code = COVID-[address] VACCINE (#1)] Future Scheduled 1948-03-26 COVID-19 VACCINE (#1) [facility] 00:00:00 [code = COVID-[address] VACCINE (#1)] Future Scheduled 1948-03-26 COVID-19 VACCINE (#1) [facility] 00:00:00 [code = COVID-[address] VACCINE (#1)] Future Scheduled 1948-03-26 COVID-19 VACCINE (#1) [facility] 00:00:00 [code = COVID-[address] VACCINE (#1)] Future Scheduled 1947 CT Colonography (combo) [facility] 00:00:00 [code = CT Colonography [facility] (combo)] Future Scheduled 1947 Screening for malignant [facility] 00:00:00 neoplasm of colon Medical Ce nter (procedure) [code = 821355059] Future Scheduled 1947 Screening for malignant [facility] 00:00:00 neoplasm of colon Medical Ce nter (procedure) [code = 253041917] Future Scheduled 1947 Screening for malignant [facility] 00:00:00 neoplasm of colon Medical Ce nter (procedure) [code = 136243545] Future Scheduled 1947 Screening for malignant [facility] 00:00:00 neoplasm of colon Medical Ce nter (procedure) [code = 627202398] Future Scheduled 1947 Sigmoidoscopy [code = [facility] S[facility]oscopy] Medical Cente r Future Scheduled 1947 CT Colonography (combo) [facility] 00:00:00 [code = CT Colonography [facility] (combo)] Future Scheduled 1947 CT Colonography (combo) [facility] 00:00:00 [code = CT Colonography [facility] (combo)] Future Scheduled 1947 Screening for malignant [facility] 00:00:00 neoplasm of colon Medical Ce nter (procedure) [code = 271236380] Future Scheduled 1947 Screening for malignant [facility] 00:00:00 neoplasm of colon Medical Ce nter (procedure) [code = 912279461] Future Scheduled 1947 Screening for malignant [facility] 00:00:00 neoplasm of colon Medical Ce nter (procedure) [code = 529804056] Future Scheduled 1947 Screening for malignant [facility] 00:00:00 neoplasm of colon Medical Ce nter (procedure) [code = 417823895] Future Scheduled 1947 Sigmoidoscopy [code = [facility] S[facility]oscopy] Medical Cente r Future Scheduled 1947 Screening for malignant [facility] 00:00:00 neoplasm of colon Medical Ce nter (procedure) [code = 325754566] Future Scheduled 1947 Screening for malignant [facility] 00:00:00 neoplasm of colon Medical Ce nter (procedure) [code = 105753119] Future Scheduled 1947 CT Colonography (combo) [facility] 00:00:00 [code = CT Colonography [facility] (combo)] Future Scheduled 1947 Screening for malignant [facility] 00:00:00 neoplasm of colon Medical Ce nter (procedure) [code = 796641010] Future Scheduled 1947 Screening for malignant [facility] 00:00:00 neoplasm of colon Medical Ce nter (procedure) [code = 498048334] Future Scheduled 1947 Screening for malignant [facility] 00:00:00 neoplasm of colon Medical Ce nter (procedure) [code = 623398540] Future Scheduled 1947 Screening for malignant [facility] 00:00:00 neoplasm of colon Medical Ce nter (procedure) [code = 096137832] Future Scheduled 1947 Sigmoidoscopy [code = [facility] 00:[facility] S[facility]oidoscopy] Medical Cente r Future Scheduled 1947 Screening for malignant [facility] 00:00:00 neoplasm of colon Medical Ce nter (procedure) [code = 647803910] Future Scheduled 1947 CT Colonography (combo) [facility] 00:00:00 [code = CT Colonography [facility] (combo)] Future Scheduled 1947 Screening for malignant [facility] 00:00:00 neoplasm of colon Medical Ce nter (procedure) [code = 941863694] Future Scheduled 1947 Screening for malignant [facility] 00:00:00 neoplasm of colon Medical Ce nter (procedure) [code = 511762818] Future Scheduled 1947 Screening for malignant [facility] 00:00:00 neoplasm of colon Medical Ce nter (procedure) [code = 900016140] Future Scheduled 1947 Screening for malignant [facility] 00:00:00 neoplasm of colon Medical Ce nter (procedure) [code = 268394416] Future Scheduled 1947 Screening for malignant [facility] 00:00:00 neoplasm of colon Medical Ce nter (procedure) [code = 318854363] Future Scheduled 1947 Sigmoidoscopy [code = [facility] S[facility]oscopy] Medical Cente r Future Scheduled 1947 Sigmoidoscopy [code [facility] 00:[facility] Sigmoidoscopy] Medical Cente r Future Scheduled 1947 CT Colonography (combo) [facility] 00:00:00 [code = CT Colonography [facility] (combo)] Future Scheduled 1947 Screening for malignant [facility] 00:00:00 neoplasm of colon Medical Ce nter (procedure) [code = 267135281] Future Scheduled 1947 Screening for malignant [facility] 00:00:00 neoplasm of colon Medical Ce nter (procedure) [code = 609135343] Future Scheduled 1947 Screening for malignant [facility] 00:00:00 neoplasm of colon Medical Ce nter (procedure) [code = 910544846] Future Scheduled 1947 Screening for malignant [facility] 00:00:00 neoplasm of colon Medical Ce nter (procedure) [code = 704968665] Future Scheduled 1947 Sigmoidoscopy [facility]code [facility]] Medical Cente r Encounters Start End Encounter Admission Attending Care Care Encounter Source Date/Time Date/Time Type Type Clinicians Facility Department ID 2021-10-27 Outpatient EL JULIA, [facility] Surgery [id number] [facility] 16:59:33 BALJINDER 2023-03-01 2023-03-01 Outpatient SLOANE FUENTES [id number] [facility] 15:30:00 15:30:00 KIM Seybol d 2023-02-04 2023-02-04 Outpatient CRISTINA HOOPER [id number] [place] 16:30:00 16:30:00 Seybol d 2023-02-03 2023-02-03 Outpatient SLOANE ROBLES [id number] [place] 08:50:00 08:50:00 ASHANTI Seybol d 2023-01-29 2023-01-29 Outpatient SLOANE FUENTES [id number] [place] 00:00:00 00:00:00 KIM Seybol d 2023-01-29 2023-01-29 Outpatient SLOANE FUENTES [id number] [place] 00:00:00 00:00:00 KIM Seybol d 2023-01-29 2023-01-29 Outpatient SLOANE FUENTES [id number] [place] 00:00:00 00:00:00 KIM Seybol d 2023-01-28 2023-01-28 Outpatient LAB90 SLOANE MORALES [id number] [place] 11:55:00 11:55:00 Seybol d 2023-01-26 2023-01-26 Outpatient LAB90 SLOANE MORALES [id number] [place] 11:30:00 11:30:00 Seybol d 2023-01-26 2023-01-26 Outpatient SLOANE FUENTES [id number] [place] 10:45:00 10:45:00 KIM Seybol d 2021-10-20 2021-10-20 Outpatient MARA DUMONT [facility] [id number] [facility] 08:31:10 12:26:20 BALJINDER [facility] Medicin [facility] 2021-05-14 2021-05-14 [facility] [id number] 14:30:00 14:30:00 [facility] 2020-10-03 2020-10-03 Hospital [facility] [id number] [facility] 15:17:35 23:59:00 Encounter [facility] [id number] ity of Surgical [id number] [place] as Specialti [id number] Me dical es [address] [facility] [place] 2020-10-03 2020-10-03 Outpatient Zelda SÁNCHEZ [facility] [id number] [facility] 15:00:00 15:00:00 [facility] 2020-10-03 2020-10-03 Office [facility] [id number] Univers 14:31:25 14:46:25 Visit [facility] [id number] it y of Surgical [id number] [place] as Specialti [id number] Me dical es 198 [facility] Results Test Description Test Time Test Comments Results Result Sourc e Comments XR FEMUR 2 VW 2020-10-03 No signs of [facility] of RIGHT 21:17:52 fracture or [place] [facility] dislocation no Branch soft tissue masses or lesions noted
[2023-01-30] MEDS ORDERED: METHYLPREDNISOLONE 125 MG INJ ONE (18:33)
[2023-01-30 18:34] LABS: Absolute Lymphocytes (CBC) 1.1 K/uL (0.7-4.9); Hematocrit 44.7 % (39.6-49.0); MCV 82.3 fL (80-100); RBC Red Blood Cell Count 5.44 M/uL (4.33-5.43)
[2023-01-30] MEDS ORDERED: ALBUTEROL 2.5 MG/3 ML NEB SOL ONE ×2 (18:34→20:00)
[2023-01-30] MEDS ORDERED: IPRATROPIUM BROM 0.5MG/2.5ML ONE (18:34)
[2023-01-30 18:39] LABS: Protime INR 1.07
--- NOTE | 2023-01-30 18:42 | RAD REPORT ---
EXAM DESCRIPTION: Sharmila Single View01/30/2023 6:34 pm CLINICAL HISTORY: Chest pain COMPARISON: January 17, 2023 FINDINGS: The lungs appear clear of acute infiltrate. The heart is normal size IMPRESSION: No acute abnormalities displayed
[2023-01-30 18:51] LABS: Potassium 3.9 mEq/L (3.5-5.1)
[2023-01-30] MEDS ORDERED: Magnesium Sulfate 2gm IVPB 2 G/50 ML BAG IV ONE (20:00)
--- NOTE | 2023-01-30 20:47 | RAD REPORT ---
EXAM DESCRIPTION: CT - Chest For Pe Angio - 01/30/2023 8:23 pm CLINICAL HISTORY: sob COMPARISON: 2021 TECHNIQUE: Dynamically enhanced axial 3 mm thick images of the chest were obtained during administra tion of 100 mL Isovue 370 IV contrast. Coronal and oblique reconstruction images were generated and r eviewed. Exam utilizes a protocol for optimal evaluation of pulmonary arterial tree. Maximum intensity projections 3D imaging was utilized All CT scans are performed using dose optimization technique as appropriate and may include automated exposure control or mA/KV adjustment according to patient size. FINDINGS: A pulmonary embolus is not seen. A thoracic aortic aneurysm is not noted. A pleural effusion is not seen. A pericardial effusion is not seen. A lung consolidation is not present. IMPRESSION: Negative for a pulmonary embolism.
--- NOTE | 2023-01-30 20:55 | EDPHYS ---
Physician Documentation [facility] Name: Romero Schilling Age: 77 yrs Sex: Male : 1945 Arrival Date: 01/30/2023 Time: 17:51 Bed 15 Private MD: ED Physician German uBrns HPI: 01/30 18:00 This 77 yrs old Male presents to ER via Ambulatory with complaints of Shortness Of jh7 Breath. 18:00 The patient has shortness of breath at rest. Onset: The symptoms/episode began/occurred jh7 3 week(s) ago, and became worse today. Associated signs and symptoms: Pertinent positives: productive cough, Pertinent negatives: chest pain, fever, nausea, vomiting. 77-year-old male presents with progressive shortness of breath and productive cough over the past 3 weeks. Also reports sinus congestion. States that he saw Dr. Marinelli 1 week ago who prescribed him an albuterol inhaler and an Advair disc. Reports no relief from symptoms. History of a quadruple bypass in 2006. 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 Historical: - Allergies: 17:58 Lisinopril; hb - Home Meds: 17:58 atorvastatin 10 mg Oral tab 1 tab once daily [Active]; Cholestyramine Light 4 gram Oral hb powd 1 scoop 2 times per day [Active]; metoprolol tartrate 25 mg Oral tab 1 tab 2 times per day [Active]; - PMHx: 17:58 Hypercholesterolemia; Hypertensive disorder; Myocardial infarction; hb - PSHx: 17:58 heart bypass; hb - Immunization history:: Adult Immunizations up to date. - Social history:: Smoking status: Patient denies any tobacco usage or history of. ROS: 18:00 Constitutional: Negative for fever, chills, and weight loss, Eyes: Negative for injury, jh7 pain, redness, and discharge, ENT: Negative for injury, pain, and discharge, Cardiovascular: Negative for chest pain, palpitations, and edema, Abdomen/GI: Negative for abdominal pain, nausea, vomiting, diarrhea, and constipation, Back: Negative for injury and pain, MS/Extremity: Negative for injury and deformity, Skin: Negative for injury, rash, and discoloration, Neuro: Negative for headache, weakness, numbness, tingling, and seizure. 18:00 Respiratory: Positive for cough, shortness of breath, wheezing. 18:00 All other systems are negative. Exam: 18:00 Head/Face: Normocephalic, atraumatic. ENT: Nares patent. No nasal discharge, no jh7 septal abnormalities noted. Tympanic membranes are normal and external auditory canals are clear. Oropharynx with no redness, swelling, or masses, exudates, or evidence of obstruction, uvula midline. Mucous membranes moist. Cardiovascular: Regular rate and rhythm with a normal S1 and S2. No gallops, murmurs, or rubs. Normal PMI, no JVD. No pulse deficits. Abdomen/GI: Soft, non-tender, with normal bowel sounds. No distension or tympany. No guarding or rebound. No evidence of tenderness throughout. Back: No spinal tenderness. No costovertebral tenderness. Full range of motion. Skin: Warm, dry with normal turgor. Normal color with no rashes, no lesions, and no evidence of cellulitis. MS/ Extremity: Pulses equal, no cyanosis. Neurovascular intact. Full, normal range of motion. Neuro: Awake and alert, GCS 15, oriented to person, place, time, and situation. Motor strength 5/5 in all extremities. Sensory grossly intact. Normal gait. 18:00 Constitutional: The patient appears alert, awake, uncomfortable. 18:00 Respiratory: moderate respiratory distress is noted, Respirations: labored breathing, that is mild, tachypnea, that is mild, Breath sounds: wheezing: that is moderate, is heard diffusely, Respiratory rate: 26 Vital Signs: 17:56 BP 160 / 75; Pulse 88; Resp 24; Temp 98.7; Pulse Ox 87% on R/A; Weight 102.06 kg; hb Height 5 ft. 10 in. ; Pain 0/10; 18:05 Pulse Ox 93% on 3 lpm NC; hb 18:56 BP 136 / 66; Pulse 95; Resp 20; Pulse Ox 90% on R/A; mm9 19:50 BP 126 / 81; Pulse 78; Resp 18; Pulse Ox 97% on NC; sg5 20:50 BP 128 / 76; Pulse 85; Resp 18; Pulse Ox 96% on NC; sg5 21:50 BP 121 / 74; Pulse 88; Resp 18; Pulse Ox 95% on 2 lpm NC; sg5 22:50 BP 143 / 66; Pulse 96; Resp 18; Pulse Ox 96% on 2 lpm NC; sg5 17:56 Body Mass Index 32.28 (102.06 kg, 177.8 cm) hb 17:56 Pain Scale: Adult hb MDM: 18:10 Patient medically screened. [facility] 20:26 Transition of care: After a detail discussion of the patient's case, care is [facility] transferred to [facility]. 20:49 Differential diagnosis: Anxiety Reaction asthma, Bronchitis CHF exacerbation, Chronic snw Obstructive Pulmonary Disease pneumonia, Pneumothorax pulmonary edema. Data reviewed: vital signs, nurses notes, lab test result(s), radiologic studies. Management of patient was discussed with the following: Hospitalist: Roberto Soares. Counseling: I had a detailed discussion with the patient and/or guardian regarding: the historical points, exam findings, and any diagnostic results supporting the discharge/admit diagnosis, the presence of at least one elevated blood pressure reading (>120/80) during this emergency department visit, lab results, radiology results, the need for further work-up and treatment in the hospital. 01/30 18:10 Order name: Basic Metabolic Panel; Complete Time: 18:52 [facility] 01/30 18:10 Order name: CBC with Diff; Complete Time: 18:46 [facility] 01/30 18:10 Order name: NT PRO-BNP; Complete Time: 18:52 [facility] 01/30 18:10 Order name: PT-INR; Complete Time: 18:46 [facility] 01/30 18:10 Order name: Troponin HS; Complete Time: 18:52 [facility] 01/30 20:51 Order name: SARS RAPID; Complete Time: 22:03 4 01/30 20:51 Order name: Flu; Complete Time: 21:56 4 01/30 18:10 Order name: XRAY Chest (1 view); Complete Time: 18:46 [facility] 01/30 18:59 Order name: CT Chest For PE Angio; Complete Time: 20:48 [facility] 01/30 18:10 Order name: EKG; Complete Time: 18:11 [facility] 01/30 18:10 Order name: Cardiac monitoring; Complete Time: 18:33 [facility] 01/30 18:10 Order name: EKG - Nurse/Tech; Complete Time: 18:55 [facility] 01/30 18:10 Order name: IV Saline Lock; Complete Time: 18:33 7 01/30 18:10 Order name: Labs collected and sent; Complete Time: 18:33 [facility] 01/30 18:10 Order name: O2 Per Protocol; Complete Time: 18:17 7 01/30 18:10 Order name: O2 Sat Monitoring; Complete Time: 18:17 jh7 EC:50 Rate is 87 beats/min. Rhythm is regular. QRS [place] is Normal. CA interval is normal at 7 166 msec. QRS interval is normal at 98 msec. QT interval is normal at 370 msec. No Q waves. T waves are Normal. No ST changes noted. Clinical impression: Normal sinus rhythm. Administered Medications: 18:33 Drug: MethylPrednisoLONE IVP 125 mg Route: IVP; Site[facility]; [facility] 18:34 Drug: DuoNeb Nebulize (3:1) (2.5 mg - 0.5 mg) 3 ml Route: Nebulizer; [facility] 20:01 Drug: Magnesium Sulfate IVPB 2 grams Route: IVPB; Infused Over: 2 hrs; Site: right sg5 forearm; 21:30 Follow up: IV Status: Completed infusion sg5 20:01 Drug: Albuterol Inhalation 2.5 mg Route: Inhalation; 5 Disposition Summary: 01/30/23 20:53 Hospitalization Ordered Hospitalization Status: Inpatient Admission snw Provider: Jeff Escalona Location: Telemetry/MedSurg (Inpatient) snw Condition: Stable snw Problem: new snw Symptoms: have improved snw Bed/Room Type: Standard snw [facility]01[facility]30[facility]23 22:37) mw Diagnosis - Hypoxemia snw Forms: - Medication Reconciliation Form snw - SBAR form snw Signatures: Dispatcher [employer] EDMS Valerie Rahman RN RN mw Waters, Shelly, BRIANNA-C EYELET MAKER-Csnw Roma York RN Keyon Rehman RN RN [facility] Salena Rose FNP FNP [facility] Alejandra Maradiaga RN RN sg5 Corrections: (The following items were deleted from the chart) 22:37 20:53 snw mw
--- NOTE | 2023-01-30 20:55 | ER ---
Nurse's Notes [facility] Name: Romero Schilling Age: 77 yrs Sex: Male : 1945 Arrival Date: 01/30/2023 Time: 17:51 Bed 15 Private MD: Diagnosis: Hypoxemia Presentation: 01/30 17:56 Chief complaint: Productive cough and SOB x 3 weeks, worse over last few days. hb Coronavirus screen: At this time, the client does not indicate any symptoms associated with coronavirus-19. Ebola Screen: No symptoms or risks identified at this time. Initial Sepsis Screen: Does the patient meet any 2 criteria? RR > 20 per min. No. Patient's initial sepsis screen is negative. Does the patient have a suspected source of infection? No. Patient's initial sepsis screen is negative. Risk Assessment: Do you want to hurt yourself or someone else? Patient reports no desire to harm self or others. Onset of symptoms was January 11, 2023. 17:56 Method Of Arrival: Ambulatory 17:56 Acuity: LEANDER 2 Triage Assessment: 23:31 General: Appears in no apparent distress. comfortable, Behavior is calm, cooperative, sg5 appropriate for age. Respiratory: Onset: The symptoms/episode began/occurred gradually, the patient has moderate shortness of breath. Respiratory: Airway is patent Respiratory effort is even, unlabored, Breath sounds with wheezes bilaterally. Historical: - Allergies: 17:58 Lisinopril; hb - Home Meds: 17:58 atorvastatin 10 mg Oral tab 1 tab once daily [Active]; Cholestyramine Light 4 gram Oral hb powd 1 scoop 2 times per day [Active]; metoprolol tartrate 25 mg Oral tab 1 tab 2 times per day [Active]; - PMHx: 17:58 Hypercholesterolemia; Hypertensive disorder; Myocardial infarction; hb - PSHx: 17:58 heart bypass; hb - Immunization history:: Adult Immunizations up to date. - Social history:: Smoking status: Patient denies any tobacco usage or history of. Screenin:14 [facility] ED Fall Risk Assessment (Adult) Score/Fall Risk Level 0 - 2 = Low Risk ll1 Oriented to surroundings, Maintained a safe environment, Educated pt \T\ family on fall prevention, incl call for assistance when getting out of bed, Hourly rounding (assess needs \T\ fall precautionary measures) done. Abuse screen: Denies threats or abuse. Nutritional screening: No deficits noted. Nutritional screening: No deficits noted. 23:32 Tuberculosis screening: No symptoms or risk factors identified. sg5 Assessment: 18:34 General: Appears uncomfortable, Behavior is calm, cooperative, appropriate for age. ll1 Pain: Denies pain. Cardiovascular: Rhythm is regular. Respiratory: Reports shortness of breath cough that is Airway is patent Respiratory effort is even, labored, Breath sounds with wheezes bilaterally. 19:14 Reassessment: No changes from previously documented assessment. Patient and/or family ll1 updated on plan of care and expected duration. Pain level reassessed. 22:59 Reassessment: called to give report, nurse will call back. sg5 Vital Signs: 17:56 BP 160 / 75; Pulse 88; Resp 24; Temp 98.7; Pulse Ox 87% on R/A; Weight 102.06 kg; hb Height 5 ft. 10 in. ; Pain 0/10; 18:05 Pulse Ox 93% on 3 lpm NC; hb 18:56 BP 136 / 66; Pulse 95; Resp 20; Pulse Ox 90% on R/A; mm9 19:50 BP 126 / 81; Pulse 78; Resp 18; Pulse Ox 97% on NC; sg5 20:50 BP 128 / 76; Pulse 85; Resp 18; Pulse Ox 96% on NC; sg5 21:50 BP 121 / 74; Pulse 88; Resp 18; Pulse Ox 95% on 2 lpm NC; sg5 22:50 BP 143 / 66; Pulse 96; Resp 18; Pulse Ox 96% on 2 lpm NC; sg5 17:56 Body Mass Index 32.28 (102.06 kg, 177.8 cm) hb 17:56 Pain Scale: Adult hb ED Course: 17:53 Patient arrived in ED. ts1 17:58 Triage completed. hb 17:58 Arm band placed on. hb 18:10 [facility] jh7 18:10 German Burns MD is Attending Physician. [facility] 18:17 Keyon Le, CLAUDINE is Primary Nurse. ll1 18:34 Inserted saline lock: 22 gauge in right forearm, using aseptic technique. Blood ll1 collected. 18:36 XRAY Chest (1 view) In Process Unspecified. EDMS 18:55 Patient has correct armband on for positive identification. Bed in low position. Call mm9 light in reach. Side rails up X 1. Adult w/ patient. Client placed on continuous cardiac and pulse oximetry monitoring. NIBP monitoring applied. lunchroom monitor on. Pulse ox on. NIBP on. 18:55 Initial lab(s) drawn, by ED staff, sent to lab. EKG done, by ED staff, reviewed by courtney Burns MD. 20:24 CT Chest For PE Angio In Process Unspecified. EDMS 20:52 Jeff Escalona is Hospitalizing Provider. snw 21:31 SARS RAPID Sent. rv1 21:31 Flu Sent. rv1 23:27 Inserted saline lock:. kd3 23:29 No provider procedures requiring assistance completed. Patient admitted, IV remains in sg5 place. Administered Medications: 18:33 Drug: MethylPrednisoLONE IVP 125 mg Route: IVP; Site: right forearm; ll1 18:34 Drug: DuoNeb Nebulize (3:1) (2.5 mg - 0.5 mg) 3 ml Route: Nebulizer; ll1 20:01 Drug: Magnesium Sulfate IVPB 2 grams Route: IVPB; Infused Over: 2 hrs; Site: right sg5 forearm; 21:30 Follow up: IV Status: Completed infusion sg5 20:01 Drug: Albuterol Inhalation 2.5 mg Route: Inhalation; sg5 Medication: 19:15 VIS not applicable for this client. ll1 Outcome: 20:53 Decision to Hospitalize by Provider. snw 23:31 Admitted to Med/surg accompanied by tech, via wheelchair, room 215, Report called to sg5 Nurse Светлана 23:31 Condition: good 23:31 Instructed on the need for admit. 23:34 Patient left the ED. sg5 Signatures: Dispatcher [employer] EDMS Leisa Whiteside, CODING TEAM LEAD-C CODING TEAM LEAD-Belkisw Roma York RN RN hb Lewis, Lynsay, RN RN ll1 Tri Berman RN RN kd3 Salena Roes, CODING TEAM LEAD CODING TEAM LEAD jhLuana Méndez mm9 Myranda Anglin rv1 Alejandra Maradiaga RN RN sg5 Paige Malin PAS PAS ts1
[2023-01-30 22:02] LABS: SARS-CoV-2 Antigen Rapid Res Negative (Negative)
--- NOTE | 2023-01-30 22:34 | P.HP ---
Certification for Inpatient Patient admitted to: Observation With expected LOS: <2 Midnights Patient will require the following post-hospital care: None Practitioner: I am a practitioner with admitting privileges, knowledge of patient current condition, hospital course, and medical plan of care. Services: Services provided to patient in accordance with Admission requirements found in Title 42 Section 412.3 of the Code of Federal Regulations Patient History Date of Service: 01/31/23 Primary Care Provider: Carlie Reason for admission: Acute Hypoxic Respiratory Failure History of Present Illness: Ms. Schilling is a 77 year old male with past medical history of coronary artery disease s/p CABG, hypertension, and hyperlipidemia who presented to the emergency department with complaints of shortness of breath, cough, and wheezing x 3 weeks. He was seen in the ED 3 weeks ago, diagnosed with URI and discharged with steroids and antibiotics. He saw his PCP 1 week ago who prescribed him an inhaler and instructed him to follow up with pulmonology and cardiology. He returns today as him symptoms have persisted, he has moderate WOODY and cannot lie flat. He was noted to be saturating 87% on room air upon arrival and was placed on supplemental oxygen. His workup was completely benign- labs, chest xray, chest CTA, covid/flu. He was treated with steroids, nebs, and mag and reports feeling improved but is still hypoxic without supplemental oxygen. He will be admitted for further evaluation and management. Allergies lisinopril Allergy (Verified 01/31/23 01:31) cough a lot Home medications list reviewed: Yes Home Medications: Albuterol Sulfate [Albuterol Sulfate Hfa] 2 puff IH Q6HP PRN 01/31/23 Ascorbic Acid [Vitamin C] 1,000 mg PO DAILY 01/31/23 Aspirin Chewable [Aspirin Chewable*] 81 mg PO DAILY 01/31/23 Atorvastatin Calcium [Lipitor*] 20 mg PO BEDTIME 01/31/23 Cholestyramine [Cholestyramine Resin] 1 packet PO DAILY 01/31/23 Esomeprazole Mag Trihydrate [Nexium] 20 mg PO DAILY 01/31/23 Fluticasone/Salmeterol [Advair 250-50 Diskus] 1 puff IH BID 01/31/23 Levocetirizine Dihydrochloride [Xyzal] 5 mg PO DAILY 01/31/23 Metoprolol Tartrate [Lopressor] 25 mg PO BID 01/31/23 [place]-3S/Dha/Epa/Fish Oil [Fish Oil 1,000 mg Softgel] 1 cap PO DAILY 01/31/23 Prednisolone Acetate/Pf [Prednisolone Acet 1% Eye Drop] 1 gtt RIGHT EYE DAILY 01/31/23 Turmeric Root Extract [Turmeric] 500 mg PO DAILY 01/31/23 - Past Medical/Surgical History Diabetic: No -: Hypertension -: Coronary Artery Disease -: Hyperlipidemia -: Cholecystectomy -: Quadruple bypass Psychosocial/ Personal History: Patient is . He is a . - Family History Family History: Reviewed- Non-Contributory - Family History Father -: Heart disease, Diabetes Mother -: Diabetes Sister -: Diabetes - Social History Smoking Status: Former smoker Alcohol use: Yes CD- Drugs: No Caffeine use: Yes Place of Residence: Home Review of Systems Respiratory: Cough, Shortness of Breath, SOB with Excertion, Sputum (Clear), Wheezing Physical Examination - Vital Signs Temperature: 98.7 F Blood Pressure: 121/74 Pulse: 88 Respirations: 18 Pulse Ox (%): 95 - Physical Exam General: Alert, In no apparent distress HEENT: Atraumatic, EOMI, Sclerae nonicteric Neck: Supple, 2+ carotid pulse no bruit Respiratory: Expiratory wheezes (mild) Cardiovascular: Regular rate/rhythm, Normal S1 S2 Gastrointestinal: Normal bowel sounds, No tenderness Musculoskeletal: No tenderness Integumentary: No rashes Neurological: Normal speech, Normal affect - Studies Laboratory Data (last 24 hrs) 01/30/23 18:20: PT 11.8, INR 1.07 01/30/23 18:20: WBC 7.30, Hgb 14.7, Hct 44.7, Plt Count 275 01/30/23 18:20: Sodium 142, Potassium 3.9, BUN 14, Creatinine 0.73, Glucose 125 H Microbiology Data (last 24 hrs): 01/30/23 21:16 Nasopharnyx Influenza Type A Antigen Screen - Final 01/30/23 21:16 Nasopharnyx Influenza Type B Antigen Screen - Final Assessment and Plan - Problems (Diagnosis) (1) Acute respiratory failure with hypoxia Current Visit: Yes Status: Acute (2) Hypertension Current Visit: Yes Status: Chronic Qualifiers: Hypertension type: primary hypertension Qualified Code(s): I10 - Essential (primary) hypertension (3) Coronary artery disease Current Visit: Yes Status: Chronic Qualifiers: Coronary Disease-Associated Artery/Lesion type: bypass graft [place] vs. transplanted heart: [place] heart Associated angina: without angina Qualified Code(s): I25.810 - Atherosclerosis of coronary artery bypass graft(s) without angina pectoris (4) Hyperlipidemia Current Visit: Yes Status: Chronic Qualifiers: Hyperlipidemia type: mixed hyperlipidemia Qualified Code(s): E78.2 - Mixed hyperlipidemia - Plan Patient is admitted for further management of acute hypoxic respiratory failure. Symptoms likely secondary to COPD/asthma. He has never been diagnosed. He is a former smoker. ABG confirmed hypoxia vs faulty pulse ox. Taken 15 minutes after being off of O2. Scheduled nebs and supplemental oxygen. Titrate and wean as tolerated. He may require home O2. Obtain sputum culture. Consult pulmonology. Consider PFTs. Monitor and replete electrolytes per protocol. Reconcile and continue home medications. Lovenox for VTE prophylaxis. Full code. Discharge Plan: Home Plan to discharge in: 24 Hours - Advance Directives Does patient have a Living Will: No Does patient have a Durable POA for Healthcare: No - Code Status/Comfort Care Code Status Assessed: Yes Code Status: Full Code Physician Review: Patient Assessed, Agree with Above Assessment and Plan Critical Care: No Time Spent Managing Pts Care (In Minutes): 50
[2023-01-30] MEDS ORDERED: ACETAMINOPHEN 500 MG TAB PO PRN (23:40)
[2023-01-30] MEDS ORDERED: ONDANSETRON 4 MG/2 ML VIAL IV PRN (23:40)
[2023-01-31 00:11] VITALS: BMI 31.8
[2023-01-31 01:55] LABS: Arterial Blood Carboxyhemoglob 1.1 % (0-1.5); Blood Gas Oxyhemoglobin 88.3 % (94-97)
[2023-01-31] MEDS: IPRATROPIUM BROM 0.5MG/2.5ML NEB SCH ×4 (02:00→20:50)
[2023-01-31] MEDS: ALBUTEROL 2.5 MG/3 ML NEB SOL NEB SCH ×4 (02:00→20:50)
[2023-01-31 03:12] LABS: Absolute Lymphocytes (CBC) 0.5 K/uL (0.7-4.9); Hematocrit 45.5 % (39.6-49.0); Lymphocytes % 5.4 % (15.3-44.8); MCV 83.1 fL (80-100); MPV 8.2 fL (7.6-11.3); RBC Red Blood Cell Count 5.48 M/uL (4.33-5.43)
[2023-01-31 04:06] LABS: Magnesium 2.3 mg/dL (1.6-2.4); Phosphorus 2.3 mg/dL (2.5-4.9); Potassium 4.1 mEq/L (3.5-5.1); Thyroid Stimulating Hormone 0.494 uIU/mL (0.358-3.740)
[2023-01-31 05:05] LABS: Blood Morphology Comment NOT SEEN (NOT SEEN); Platelet Estimate ADEQ; White Blood Cell Scan OK (OK)
[2023-01-31] MEDS: POTASS/SODIUM PHOSPHATE 1 PKT POWD.PACK PO SCH ×6 (08:00→13:21)
[2023-01-31] MEDS: ENOXAPARIN 40 MG/0.4 ML SQ SCH (10:09)
[2023-01-31] MEDS: ASPIRIN 81 MG CHEWABLE TABLET PO SCH (10:09)
[2023-01-31] MEDS: METOPROLOL TAR 25 MG TAB PO SCH ×2 (10:10→20:48)
--- NOTE | 2023-01-31 12:46 | P.PN ---
Subjective Date of Service: 01/31/23 Primary Care Provider: Carlie Chief Complaint: Acute Hypoxic Respiratory Failure Patient reports persistent shortness of breath, orthopnea and nonproductive cough. He has had no fever. Physical Examination - Vital Signs Temperature: 97.3 F Blood Pressure: 137/64 Pulse: 86 Respirations: 16 Pulse Ox (%): 93 - Studies Laboratory Data (last 24 hrs) 01/30/23 18:20: PT 11.8, INR 1.07 01/30/23 18:20: WBC 7.30, Hgb 14.7, Hct 44.7, Plt Count 275 01/30/23 18:20: Sodium 142, Potassium 3.9, BUN 14, Creatinine 0.73, Glucose 125 H Microbiology Data (last 24 hrs): 01/30/23 21:16 Nasopharnyx Influenza Type A Antigen Screen - Final 01/30/23 21:16 Nasopharnyx Influenza Type B Antigen Screen - Final Assessment And Plan - Plan Physical Exam General: Alert, In no apparent distress Neck: Supple, no elevated JVD Respiratory: Diffuse diminished breath sounds, no crackles or rales or rhonchi. Cardiovascular: Regular rate/rhythm, Normal S1 S2 Gastrointestinal: Normal bowel sounds, No tenderness Musculoskeletal: No tenderness Integumentary: No rashes Neurological: Normal speech, Normal affect. Diagnosis Acute respiratory failure with hypoxia. Acute bronchitis/new onset COPD Acute congestive heart failure. Coronary artery disease Plan: Differential diagnosis for patient's shortness of breath includes COPD versus congestive heart failure. Continue bronchodilators. Start IV steroid, oral Levaquin Obtain echocardiogram Start IV Lasix. Monitor and optimize electrolytes. Pulmonary consult PFT as outpatient.
[2023-01-31] MEDS ORDERED: levoFLOXacin 750 MG TAB PO SCH (12:49)
[2023-01-31] MEDS: FUROSEMIDE 40 MG/4 ML VIAL IV SCH ×2 (13:23→17:38)
[2023-01-31] MEDS: METHYLPREDNISOLONE 40 MG INJ IV SCH ×2 (17:37→23:18)
[2023-01-31] MEDS: ATORVASTATIN 20 MG TAB PO SCH (20:48)
[2023-02-01] MEDS: ALBUTEROL 2.5 MG/3 ML NEB SOL NEB SCH ×4 (02:00→20:45)
[2023-02-01] MEDS: IPRATROPIUM BROM 0.5MG/2.5ML NEB SCH ×4 (02:00→20:45)
[2023-02-01 04:05] LABS: Phosphorus 3.3 mg/dL (2.5-4.9); Potassium 4.2 mEq/L (3.5-5.1)
[2023-02-01] MEDS: METHYLPREDNISOLONE 40 MG INJ IV SCH ×2 (05:11→18:21)
[2023-02-01] MEDS: FUROSEMIDE 40 MG/4 ML VIAL IV SCH (09:00)
[2023-02-01] MEDS: CEFUROXIME 250 MG TAB PO SCH ×2 (11:12→21:57)
[2023-02-01] MEDS: AZITHROMYCIN 250 MG TAB PO SCH (11:12)
[2023-02-01] MEDS: METOPROLOL TAR 25 MG TAB PO SCH ×2 (11:13→21:57)
[2023-02-01] MEDS: ASPIRIN 81 MG CHEWABLE TABLET PO SCH (11:13)
[2023-02-01] MEDS: ENOXAPARIN 40 MG/0.4 ML SQ SCH (11:14)
--- NOTE | 2023-02-01 12:11 | P.CNS ---
Date of Consult: 02/01/23 Primary Care Provider: Carlie Chief Complaint: Acute Hypoxic Respiratory Failure History of Present Illness: Patient is 77 years of age has been sick for about 3 to 4 weeks complaining of chest congestion went to the emergency room was treated with steroids a ntibiotics no relief also went to see his primary care doctor again was treated with some inhalers continued to get worse complaining of orthopnea severe coughing spells prior history of obstructive airways disease history of coronary artery disease denies any fever or chills Allergies lisinopril Allergy (Verified 01/31/23 01:31) cough a lot Home Medications: Albuterol Sulfate [Albuterol Sulfate Hfa] 2 puff IH Q6HP PRN 01/31/23 Ascorbic Acid [Vitamin C] 1,000 mg PO DAILY 01/31/23 Aspirin Chewable [Aspirin Chewable*] 81 mg PO DAILY 01/31/23 Atorvastatin Calcium [Lipitor*] 20 mg PO BEDTIME 01/31/23 Cholestyramine [Cholestyramine Resin] 1 packet PO DAILY 01/31/23 Esomeprazole Mag Trihydrate [Nexium] 20 mg PO DAILY 01/31/23 Fluticasone/Salmeterol [Advair 250-50 Diskus] 1 puff IH BID 01/31/23 Levocetirizine Dihydrochloride [Xyzal] 5 mg PO DAILY 01/31/23 Metoprolol Tartrate [Lopressor] 25 mg PO BID 01/31/23 [place]-3S/Dha/Epa/Fish Oil [Fish Oil 1,000 mg Softgel] 1 cap PO DAILY 01/31/23 Prednisolone Acetate/Pf [Prednisolone Acet 1% Eye Drop] 1 gtt RIGHT EYE DAILY 01/31/23 Turmeric Root Extract [Turmeric] 500 mg PO DAILY 01/31/23 - Past Medical/Surgical History Diabetic: No -: Hypertension -: Coronary Artery Disease -: Hyperlipidemia -: Cholecystectomy -: Quadruple bypass -: eye sx cataract sx right eye, retinal detachment right eye Psychosocial/ Personal History: Patient is . He is a . - Family History Father Medical History: Heart disease, Diabetes Mother Medical History: Diabetes Sister Medical History: Diabetes - Social History Alcohol use: Yes CD- Drugs: No Caffeine use: Yes Place of Residence: Home Review of Systems 10-point ROS is otherwise unremarkable General: Weakness Respiratory: Cough, Shortness of Breath Physical Examination Temp Pulse Resp BP Pulse Ox 97 F 82 16 145/69 H 95 02/01/23 08:00 02/01/23 11:13 02/01/23 08:00 02/01/23 11:13 02/01/23 08:00 General: Alert, Oriented x3, Moderate distress Respiratory: Clear to auscultation bilaterally, Diminished Cardiovascular: No edema, Regular rate/rhythm Gastrointestinal: Normal bowel sounds, Soft and benign Musculoskeletal: No clubbing, No contractures Laboratory Data (last 24 hrs) 02/01/23 03:14: Sodium 132 L, Potassium 4.2, BUN 20 H, Creatinine 1.00, Glucose 184 H, Phosphorus 3.3 - Problems (1) Acute respiratory failure with hypoxia Current Visit: Yes Status: Acute Plan: Patient is 77 years of age previously well admitted with a 4-week history of increasing cough congestion shortness of breath orthopnea history of coronary artery disease CT scan is unremarkable there is no evidence of thromboembolism Chem-7 is normal white count is also normal he has persistent severe coughing spells we will continue with bronchodilators steroids cough suppression macrolide also IV Lasix
[2023-02-01] MEDS ORDERED: FUROSEMIDE 40 MG/4 ML VIAL IV SCH (12:29)
[2023-02-01] MEDS: HYDROCODONE/CHLORPHEN 5 ML/OSYR PO SCH ×2 (13:35→21:00)
--- NOTE | 2023-02-01 14:44 | P.PN ---
Subjective Date of Service: 02/01/23 Primary Care Provider: Carlie Chief Complaint: Acute Hypoxic Respiratory Failure Patient states he feels better today. He is no longer orthopneic. He has had no fever and states the coughing has improved. Physical Examination - Vital Signs Temperature: 97 F Blood Pressure: 145/69 Pulse: 82 Respirations: 16 Pulse Ox (%): 95 - Studies Laboratory Data (last 24 hrs) 02/01/23 03:14: Sodium 132 L, Potassium 4.2, BUN 20 H, Creatinine 1.00, Glucose 184 H, Phosphorus 3.3 Microbiology Data (last 24 hrs): 01/31/23 06:30 Sputum Sputum Gram Stain - Final Assessment And Plan - Plan Physical Exam General: Alert, NAD Neck: Supple, no elevated JVD Respiratory: Diffuse diminished breath sounds, no crackles or rales or rhonchi. Cardiovascular: Regular rate/rhythm, Normal S1 S2 Gastrointestinal: Normal bowel sounds, No tenderness Musculoskeletal: No tenderness Integumentary: No rashes Neurological: Normal speech, Normal affect. Diagnosis Acute respiratory failure with hypoxia. Acute bronchitis/new onset COPD Acute congestive heart failure. Coronary artery disease Plan: Differential diagnosis for patient's shortness of breath includes COPD versus congestive heart failure. Continue bronchodilators. Start IV steroid, oral Levaquin Echocardiogram is pending Continue IV Lasix. Pulmonary input appreciated Wean off oxygen. Assess oxygen saturation on room air with exertion.
--- NOTE | 2023-02-01 15:25 | EKG ---
Test Date: 2023-01-30 Test Time: 18:50:23 Senior Consulting Manager: REUBEN MEASUREMENT RESULTS: Intervals: Rate: 87 MT: 166 QRSD: 98 QT: 370 QTc: 445 [place]: P: 64 MT: 166 QRS: -25 T: 63 INTERPRETIVE STATEMENTS: Normal sinus rhythm with sinus arrhythmia Inferior infarct, age undetermined Abnormal ECG Compared to ECG 01/17/2023 12:38:54 Atrial premature complex(es) no longer present First degree AV block no longer present Left-axis deviation no longer present Myocardial infarct finding still present Electronically Signed On 02-01-23 15:22:04 CDT by Silvestre Santamaria
[2023-02-01] MEDS: ATORVASTATIN 20 MG TAB PO SCH (21:56)
[2023-02-02] MEDS: METHYLPREDNISOLONE 40 MG INJ IV SCH ×2 (01:05→10:01)
[2023-02-02] MEDS: IPRATROPIUM BROM 0.5MG/2.5ML NEB SCH ×4 (01:20→20:05)
[2023-02-02] MEDS: ALBUTEROL 2.5 MG/3 ML NEB SOL NEB SCH ×4 (01:20→20:05)
[2023-02-02] MEDS: PANTOPRAZOLE 40MG TABLET PO SCH (06:23)
--- NOTE | 2023-02-02 07:06 | P.PN ---
Date of Service: 02/02/23 Subjective: feeling alright this morning intermittent cough slightly improved today states he gets SOB and starts coughing when laying down flat (ongoing for ~4 weeks) on oxygen supplementation overnight. states intermittent need during day ROS: 10 point ROS as noted above, otherwise negative Physical Exam: GEN: Alert, oriented, NAD HEENT: Normal conjunctiva, sclera anicteric CV: Regular rate and rhythm, no edema Pulm: Nonlabored respirations on RA, mild expiratory wheeze ABD: Soft, nontender, nondistended Neuro: Normal speech, normal affect vitals reviewed Problem List: Acute respiratory failure with hypoxia secondary to COPD exacerbation Acute bronchitis/new onset COPD Acute congestive heart failure, possible Coronary artery disease s/p CABG GERD CXR - negative CTA chest - Negative for pulmonary embolism, no significant pleural effusions / pulm edema less likely CHF, but has risk factors; echo to be done 02/02 hypoxia/respiratory failure more likely COPD >30pk/yr smoking history, quit ~20yrs ago wheeze/dyspnea on exertion. CTA negative pulm consulted bronchodilators/nebs, steroids Wean oxygen check pulse ox at rest and ambulatory Protonix VTE: Lovenox Code: Full Dispo: Home ~24 hrs pending improvement, no oxygen requirement, echo done
[2023-02-02] MEDS: AZITHROMYCIN 250 MG TAB PO SCH (10:01)
[2023-02-02] MEDS: ASPIRIN 81 MG CHEWABLE TABLET PO SCH (10:02)
[2023-02-02] MEDS: HYDROCODONE/CHLORPHEN 5 ML/OSYR PO SCH ×2 (10:02→21:00)
[2023-02-02] MEDS: METOPROLOL TAR 25 MG TAB PO SCH ×2 (10:02→22:26)
[2023-02-02] MEDS: CEFUROXIME 250 MG TAB PO SCH ×2 (10:02→22:26)
[2023-02-02] MEDS: ENOXAPARIN 40 MG/0.4 ML SQ SCH (10:54)
--- NOTE | 2023-02-02 12:04 | P.PN ---
Subjective Date of Service: 02/02/23 Primary Care Provider: Carlie Chief Complaint: Shortness of breath Subjective: Improving (Patient is improving doing much better slept well last night) Review of Systems Unremarkable Physical Examination - Vital Signs Temperature: 97.3 F Blood Pressure: 169/66 Pulse: 109 Respirations: 17 Pulse Ox (%): 99 - Physical Exam General: Alert, Oriented x3 Respiratory: Clear to auscultation bilaterally Cardiovascular: No edema, Regular rate/rhythm - Studies Microbiology Data (last 24 hrs): 01/31/23 06:30 Sputum Sputum Gram Stain - Final 01/31/23 06:30 Sputum Culture & Sensitivity - Final NORMAL QUANTITY OF UPPER RESPIRATORY MADDIE GROWN. Assessment And Plan - Current Problems (Diagnosis) (1) Acute respiratory failure with hypoxia Current Visit: Yes Status: Acute Plan: Patient has improved significantly no longer hypoxic chemistries reviewed doing much better discharge on Advair low-dose prednisone 10 mg twice a day for a week continue with cefuroxime and azithromycin cough and shortness of breath has improved vital signs stable blood pressure mildly elevated cultures are negative Physician Review: Patient Assessed, Agree with Above Assessment and Plan
[2023-02-02] MEDS: ATORVASTATIN 20 MG TAB PO SCH (22:26)
[2023-02-02] MEDS: predniSONE 20 MG TAB PO SCH (22:26)
[2023-02-03] MEDS: ALBUTEROL 2.5 MG/3 ML NEB SOL NEB SCH ×2 (02:20→07:40)
[2023-02-03] MEDS: IPRATROPIUM BROM 0.5MG/2.5ML NEB SCH ×2 (02:20→07:40)
[2023-02-03 04:00] LABS: Magnesium 2.3 mg/dL (1.6-2.4); Potassium 4.1 mEq/L (3.5-5.1)
[2023-02-03] MEDS: PANTOPRAZOLE 40MG TABLET PO SCH ×2 (06:12→09:07)
[2023-02-03 06:17] VITALS: BP 152/69; TEMP 97.5
--- NOTE | 2023-02-03 07:14 | P.PN ---
Date of Service: 02/03/23 Subjective: ROS: 10 point ROS as noted above, otherwise negative Physical Exam: GEN: Alert, oriented, NAD HEENT: Normal conjunctiva, sclera anicteric CV: Regular rate and rhythm, no edema Pulm: Nonlabored respirations on RA, mild expiratory wheeze ABD: Soft, nontender, nondistended Neuro: Normal speech, normal affect vitals reviewed Problem List: Acute respiratory failure with hypoxia secondary to COPD exacerbation Acute bronchitis/new onset COPD Acute congestive heart failure, possible Coronary artery disease s/p CABG GERD CXR - negative CTA chest - Negative for pulmonary embolism, no significant pleural effusions / pulm edema less likely CHF, but has risk factors; echo to be done 02/02 hypoxia/respiratory failure more likely COPD >30pk/yr smoking history, quit ~20yrs ago wheeze/dyspnea on exertion. CTA negative pulm consulted bronchodilators/nebs, steroids Wean oxygen check pulse ox at rest and ambulatory Protonix VTE: Lovenox Code: Full Dispo: Home ~24 hrs pending improvement, no oxygen requirement, echo done
--- NOTE | 2023-02-03 07:43 | ECHO ---
HEIGHT: 5 ft 10 in WEIGHT: 221 lb 11.2 oz DATE OF STUDY: 02/02/[address]: Jeff Escalona MD 2-DIMENSIONAL: YES M.MODE: YES DOPPLER: YES COLOR FLOW: YES TDS: PORTABLE: YES DEFINITY: BUBBLE STUDY: DIAGNOSIS: ORTHOPENA, RESPIRATORY FAILURE CARDIAC HISTORY: CATHERIZATION: YES SURGERY: YES PROSTHETIC VALVE: NO PACEMAKER: NO MEASUREMENTS (cm) DIASTOLIC (NORMALS) SYSTOLIC (NORMALS) IVSd 1.2 (0.6-1.2) LA Diam 3.5 (1.9-4.0) LVEF 58% LVIDd 5.8 (3.5-5.7) LVIDs 4.0 (2.0-3.5) %FS 31% LVPWd 1.3 (0.6-1.2) Ao Diam 3.1 (2.0-3.7) 2 DIMENSIONAL ASSESSMENT: RIGHT ATRIUM: NORMAL LEFT ATRIUM: NORMAL RIGHT VENTRICLE: NORMAL LEFT VENTRICLE: NORMAL TRICUSPID VALVE: NORMAL MITRAL VALVE: NORMAL PULMONIC VALVE: NORMAL AORTIC VALVE: NORMAL PERICARDIAL EFFUSION: NONE AORTIC ROOT: NORMAL LEFT VENTRICULAR WALL MOTION: NORMAL DOPPLER/COLOR FLOW: NORMAL COMMENTS: 1. NORMAL 2-DIMENSIONAL ECHOCARDIOGRAM WITH DOPPLER. 2. NO WALL MOTION ABNORMALITY 3. NO EFFUSION TECHNOLOGIST: GRAYSON WEISS
--- NOTE | 2023-02-03 09:01 | P.DS ---
Admission Date: 02/01/23 Discharge Date: 02/03/23 Primary Care Provider: Carlie Disposition: ROUTINE DISCHARGE Discharge Condition: FAIR Reason for Admission: Shortness of breath Consultations: Pulmonology - Dr. Beaver Brief History of Present Illness: 77 yo M, PMH: coronary artery disease s/p CABG, hypertension, and hyperlipidemia Patient presented to the emergency department with complaints of shortness of breath, cough, and wheezing x 3 weeks. He was seen in the ED 3 weeks ago, diagnosed with URI and discharged with steroids and antibiotics. He saw his PCP 1 week ago who prescribed him an inhaler and instructed him to follow up with pulmonology and cardiology. He returns today as him symptoms have persisted, he has moderate WOODY and cannot lie flat. He was noted to be saturating 87% on room air upon arrival and was placed on supplemental oxygen. His workup was completely benign- labs, chest xray, chest CTA, covid/flu. He was treated with steroids, nebs, and mag and reports feeling improved but is still hypoxic without supplemental oxygen. He will be admitted for further evaluation and management. Hospital Course: Problem List: Acute respiratory failure with hypoxia secondary to COPD exacerbation Acute bronchitis/new onset COPD CHF ruled out Coronary artery disease s/p CABG GERD Patient presented with shortness of breath, cough, and wheezing that's been ongoing for ~3 weeks. Chest xray and CTA of chest were negative for acute process. Echo was normal. Pulmonology was consulted. Patient was treated with bronchodilators, nebulizers, steroids,and empiric antibiotics. This episode was felt to be secondary to COPD exacerbation, which is a new diagnosis for the patient. He has not had pulmonary function testing before. Discussed follow up with Dr. Beaver (Pulmonology) for testing. Also to consider a sleep study to rule out sleep apnea in the near future. On day of discharge, patients symptoms were much improved and he was breathing comfortably on room air. New Prescriptions Ceftin for 1 week Prednisone x 4 more days Follow up: PCP 3-5 days Pulmonology - Dr. Beaver within 1-2 weeks Physical Exam: GEN: Alert, oriented, NAD HEENT: Normal conjunctiva, sclera anicteric CV: Regular rate and rhythm, no edema Pulm: Nonlabored respirations on RA, clear bilaterally ABD: Soft, nontender, nondistended Neuro: Normal speech, normal affect Vital Signs/Physical Exam: Temp Pulse Resp BP Pulse Ox 97.5 F 77 18 152/69 H 93 02/03/23 04:00 02/03/23 04:00 02/03/23 04:00 02/03/23 04:00 02/03/23 04:00 Laboratory Data at Discharge: WBC 8.80 thou/uL (4.3-10.9) 01/31/23 02:58 Hgb 15.0 g/dL (13.6-17.9) 01/31/23 02:58 Hct 45.5 % (39.6-49.0) 01/31/23 02:58 Plt Count 258 thou/uL (152-406) 01/31/23 02:58 PT 11.8 SECONDS (9.5-12.5) 01/30/23 18:20 INR 1.07 01/30/23 18:20 Sodium 136 mEq/L (136-145) 02/03/23 02:46 Potassium 4.1 mEq/L (3.5-5.1) 02/03/23 02:46 BUN 24 mg/dL (7-18) H 02/03/23 02:46 Creatinine 0.84 mg/dL (0.70-1.30) 02/03/23 02:46 Glucose 143 mg/dL (74-106) H 02/03/23 02:46 Phosphorus 3.3 mg/dL (2.5-4.9) 02/01/23 03:14 Magnesium 2.3 mg/dL (1.6-2.4) 02/03/23 02:46 Triglycerides 62 mg/dL (<150) 01/31/23 02:58 Cholesterol 153 mg/dL (<200) 01/31/23 02:58 HDL Cholesterol 48 mg/dL (40-60) 01/31/23 02:58 Cholesterol/HDL Ratio 3.19 01/31/23 02:58 Home Medications: Albuterol Sulfate [Albuterol Sulfate Hfa] 2 puff IH Q6HP PRN 01/31/23 Ascorbic Acid [Vitamin C] 1,000 mg PO DAILY 01/31/23 Aspirin Chewable [Aspirin Chewable*] 81 mg PO DAILY 01/31/23 Atorvastatin Calcium [Lipitor*] 20 mg PO BEDTIME 01/31/23 Cholestyramine [Cholestyramine Resin] 1 packet PO DAILY 01/31/23 Esomeprazole Mag Trihydrate [Nexium] 20 mg PO DAILY 01/31/23 Fluticasone/Salmeterol [Advair 250-50 Diskus] 1 puff IH BID 01/31/23 Levocetirizine Dihydrochloride [Xyzal] 5 mg PO DAILY 01/31/23 Metoprolol Tartrate [Lopressor*] 25 mg PO BID 01/31/23 [place]-3S/Dha/Epa/Fish Oil [Fish Oil 1,000 mg Softgel] 1 cap PO DAILY 01/31/23 Prednisolone Acetate/Pf [Prednisolone Acet 1% Eye Drop] 1 gtt RIGHT EYE DAILY 01/31/23 Turmeric Root Extract [Turmeric] 500 mg PO DAILY 01/31/23 Cefuroxime Axetil [Cefuroxime] 500 mg PO BID 7 Days #14 tab 02/03/23 predniSONE [Prednisone*] 20 mg PO BID 4 Days #8 tab 02/03/23 New Medications: Cefuroxime Axetil [Cefuroxime] 500 mg PO BID 7 Days #14 tab predniSONE [Prednisone*] 20 mg PO BID 4 Days #8 tab Physician Discharge Instructions: Patient presented with shortness of breath, cough, and wheezing that's been ongoing for ~3 weeks. Chest xray and CTA of chest were negative for acute process. Echo was normal. Pulmonology was consulted. Patient was treated with bronchodilators, nebulizers, steroids,and empiric antibiotics. This episode was felt to be secondary to COPD exacerbation, which is a new diagnosis for the patient. He has not had pulmonary function testing before. Discussed follow up with Dr. Beaver (Pulmonology) for testing. Also to consider a sleep study to rule out sleep apnea in the near future. On day of discharge, patients symptoms were much improved and he was breathing comfortably on room air. New Prescriptions Ceftin for 1 week Prednisone x 4 more days Follow up: PCP 3-5 days Pulmonology - Dr. Beaver within 1-2 weeks Time spent managing pt's care (in minutes): 45
[2023-02-03] MEDS: AZITHROMYCIN 250 MG TAB PO SCH (09:07)
[2023-02-03] MEDS: METOPROLOL TAR 25 MG TAB PO SCH (09:08)
[2023-02-03] MEDS: predniSONE 20 MG TAB PO SCH (09:08)
[2023-02-03] MEDS: ENOXAPARIN 40 MG/0.4 ML SQ SCH (09:08)
[2023-02-03] MEDS: CEFUROXIME 250 MG TAB PO SCH (09:09)
[2023-02-03] MEDS: ASPIRIN 81 MG CHEWABLE TABLET PO SCH (09:09)
[2023-02-03 09:43] VITALS: O2SAT 94
== END 2023-02-03 10:08 | disposition home or self-care (01) | DRG 189 ==
LOC: ER 17:51 → 2ND 22:25 → OBSVTOIN 02-01 09:10
PROVIDERS: ADMIT Internal Medicine; ATTEND Hospitalist
DX: J96.01 Acute respiratory failure with hypoxia (principal); J44.1 Chronic obstructive pulmonary disease with (acute) exacerbation; I25.810 Atherosclerosis of coronary artery bypass graft(s) without angina pectoris; J44.0 Chronic obstructive pulmonary disease with (acute) lower respiratory infection; J20.9 Acute bronchitis, unspecified; K21.9 Gastro-esophageal reflux disease without esophagitis; I10 Essential (primary) hypertension; E78.2 Mixed hyperlipidemia; I25.2 Old myocardial infarction; Z95.1 Presence of aortocoronary bypass graft; Z88.8 Allergy status to other drugs, medicaments and biological substances; Z79.82 Long term (current) use of aspirin; Z79.52 Long term (current) use of systemic steroids; Z98.41 Cataract extraction status, right eye; Z90.49 Acquired absence of other specified parts of digestive tract; Z79.899 Other long term (current) drug therapy; Z87.891 Personal history of nicotine dependence; Z20.822 Contact with and (suspected) exposure to COVID-19
CPT/HCPCS: 36415; 71045; 71275; 80048; 80061; 82805; 83735; 83880; 84100; 84443; 84484; 85025; 85610; 87070; 87205; 87804; 87811; 93005; 93306; 94640; 94760; 96365; 96375; 99285; G0378; J1650; J1940; J2920; J2930; J3475; J7512; J7613; J7644; Q9967

== ENCOUNTER 2023-03-25 01:39 | Emergency (ER) | payer OTHER ==
--- OUTSIDE RECORDS SUMMARY | 2023-03-25 01:43 | XMS REPORT | Continuity of Care Document ---
:[address] [facility] t Address [address] [place] [address] Care Team Providers Name Role Phone BALJINDER DUMONT Attending Clinician Unavailable KIM FUENTES Attending Clinician Unavailable SEFERINO BANUELOS Attending Clinician Unavailable [id number] Attending Clinician Unavailable [id number] Attending Clinician Unavailable CRISTINA HOOPER Attending Clinician Unavailable ASHANTI ROBLES Attending Clinician Unavailable ÁLVARO SÁNCHEZ Attending Clinician Unavailable Álvaro Novoa Attending Clinician BALJINDER DUMONT Admitting Clinician Unavailable Payers Payer Name Policy Type Policy Number Effective Date Expiration Date S maritza AETNA MEDICARE HMO [id number] 2020 [place] P[place] 00:00:00 [place] 5 [id number] 2022 00:00:00 Problems Condition Condition Condition Status Onset Resolution Last Treating Co mments Source Name Details Category Date Date Treatment Clinician Date Immunodefi Immunodefi Disease Active K sarath ciency due ciency due 02-05 Se ybold to to 00:00: - conditions conditions 00 Ex terna classified classified l elsewhere elsewhere Hypertensi Hypertensi Disease Active Dea elsey on on 01-26 Seybold 00:00: - 00 Externa l GERD GERD Disease Active [place]ane (gastroeso (gastroeso 01-26 Se ybold phageal phageal 00:00: - reflux reflux 00 Externa disease) disease) l Glaucoma Glaucoma Disease Active Asher y 01-26 Seybold 00:00: - 00 Externa l History of History of Disease Active Overview : [place] detached detached 01-26 Formattin Sey bold retina retina 00:00: g of this - repair repair 00 note Externa might be l different from the original. Right side. Surgery in the past Hyperlipid Hyperlipid Disease Active Dea almanza emia -16 Seybold 00:00: - 00 Externa l SOB SOB Disease Active [place] (shortness (shortness -16 Se ybold of breath) of breath) 00:00: - on on 00 Externa exertion exertion l Chronic Chronic Disease Active [place] obstructiv obstructiv -16 Se ybold e e 00:00: - pulmonary pulmonary 00 Exte rna disease disease l with acute with acute exacerbati exacerbati on on Simple Simple Disease Active [place] chronic chronic 16 Seybold bronchitis bronchitis 00:00: - 00 Externa l CAD CAD Disease Active Overview: [place] (coronary (coronary 09-13 Formattin S eybold artery artery 00:00: g of this - disease) disease) 00 note Metal Sash Setter a of artery of artery might be l bypass bypass different graft graft from the original. CABG 4 vessel in 2206 History of History of Disease Active Dea clemens four four 09-13 Seybold vessel vessel 00:00: - coronary coronary 00 Metal Sash Setter a artery artery l bypass bypass graft graft Allergies, Adverse Reactions, Alerts Allergy Allergy Status Severity Reaction(s) Onset Inactive Treating Comm ents Source Name Type Date Date Clinician Lisinopr Propensi Active Cough [place] il ty to 5-16 Seybold adverse 00:00: - reaction 00 Externa s l LISINOPR DRUG Active High COUGH Univers IL INGREDI 1- ity of 00:00: [place] 00 Medical Branch Lisinopr Propensi Active Cough Univer s il ty to 1-21 ity of adverse 00:00: [place] reaction 00 Medical s Branch Candido Propensi Active Cough [place] Inhibito ty to 7-12 Seybold rs adverse 00:00: - reaction 00 Externa s l NO KNOWN Drug Active Univers ALLERGIE Class ity of S [facility] Social History Social Habit Start Date Stop Date Quantity Comments Source Exposure to Not sure University of SARS-CoV-2 (event) [facility] Gender identity [place] Ceballos ybamarjit - External Sexual orientation [place] Nolascoamarjit - External History of tobacco Cigarette Smoker [place] Kenna - use External Alcohol intake 2023-02-05 2023-02-05 Current drinker Asher boo Seybold - 00:00:00 00:00:00 of alcohol External (finding) Cigarette 2023-01-26 2023-01-26 [place] Pierson - pack-years 00:00:00 00:00:00 External Tobacco use and 2023-01-26 2023-01-26 Smokeless tobacco Sourav juarez Seybold - exposure 00:00:00 00:00:00 non-user External History of Social 2023-01-26 2023-01-26 [place] Ceballosybold - function 00:00:00 00:00:00 External Education 2023-01-26 2023-01-26 13 [place] Ceballosybold - 00:00:00 00:00:00 External Tobacco Comment 2023-01-26 2023-01-26 Quit 10 years ago Sourav meadimani ybold - 00:00:00 00:00:00 External Alcohol Comment 2023-01-26 2023-01-26 occasional beer Marlys diallo Seybold - 00:00:00 00:00:00 External Cigarettes smoked 2023-01-26 2023-01-26 [place] Pierson - current (pack per 00:00:00 00:00:00 Externa l day) - Reported Sex Assigned At [address] [facility] 00:00:00 00:00:00 [facility] Smoking Status Start Date Stop Date Source Ex-smoker 2023-01-26 00:00:00 2023-01-26 00:00:00 [place] - External Medications Ordered Filled Start Stop Current Ordering Indication Dosage Frequency Signature Comments Components Source Medication Medication Date Date Medication? Clinician (SIG) Name Name Brimonidine 2022- No 1[drp] Place 1 [place] Tartrate-Ti 03-01 drop into Se ybold molol 15:39: 00:00 the right - 0.2-0.5 % 58 :00 eye daily Exter na ophthalmic l Solution Bromfenac Yes 1[drp] Place 1 Fletcher sey Sodium 0.07 6-19 drop into Sey bold % 15:39: both eyes - ophthalmic 15 2 times Metal Sash Setter a Solution daily l Timolol 2022- No 1[drp] Place 1 Marlys ey Maleate Gel 6-19 06-19 drop into Se ybold 0.25 % 15:38: 00:00 the left - ophthalmic 13 :00 eye daily Exte rna Gel Forming l Solution Metoprolol Yes 25mg Take 0.5 Fletcher sey Tartrate 6-19 tablets Seybold (LOPRESSOR) 15:29: (25 mg - 50 MG oral 19 total) by Exte rna Tablet mouth 2 l times daily Atorvastati Yes 20mg Take 1 Marlys ey n Calcium 6-19 tablet (20 Seyb old 20 MG oral 15:29: mg total) - Tablet 19 by mouth Externa daily l Cholestyram Yes 4g Take 1 Marlys ey ine 4 6-19 packet (4 Seybold GM/DOSE 15:29: g total) - oral Powder 19 by mouth Exte rna daily l Turmeric Yes 1{capsu Take 1 Marlys ey 500 MG oral 6-19 le} capsule by Se ybold Capsule 15:29: mouth - 19 daily Externa l Ascorbic Yes 1000mg Take 1 Kelse y Acid 6-19 tablet Seybold (Vitamin C) 15:29: (1,000 mg - 1000 MG 19 total) by Externa oral Tablet mouth l daily Esomeprazol Yes 20mg Take 1 Marlys ey e Magnesium 6-19 capsule Seybo ld 20 MG oral 15:29: (20 mg - Delayed 19 total) by Externa Release mouth l Capsule every morning (before breakfast) Aspirin 81 Yes 81mg Take 1 Kelse y MG oral 6-19 tablet (81 Seybol d Tablet 15:29: mg total) - Delayed 19 by mouth Externa Response daily l Paupack-3 Yes 1{capsu Take 1 Kelse y 1000 MG 6-19 le} capsule by Seybol d oral 15:29: mouth - Capsule 19 daily Externa l prednisoLON Yes 1[drp] Place 1 K elsey E Acetate 1 6-19 drop into Sey bold % 15:29: the right - ophthalmic 19 eye daily Exte rna Suspension l Multiple Yes 1{capsu Take 1 Malrys ey Vitamins-Mi 6-19 le} capsule by barbaraamarjit nerdesi 15:29: mouth - (PRESERVISI 19 daily Externa ON AREDS 2 l OR) Ilevro 0.3 Yes PUT 1 DROP K elsey % 6-01 IN LEFT Seybold ophthalmic 00:00: EYE TWICE - Suspension 00 A DAY Externa l prednisoLON Yes 1[drp] Place 1 K elsey E Acetate 1 5-26 drop into Sey bold % 13:34: the right - ophthalmic 33 eye daily Exte rna Suspension l Brimonidine Yes 1[drp] Place 1 K elsey Tartrate-Ti 5-26 drop into Sey bold molol 13:34: the right - 0.2-0.5 % 33 eye daily Exter na ophthalmic l Solution Multiple Yes 1{capsu Take 1 Marlys ey Vitamins-Mi 5-26 le} capsule by barbaraamarjit nerals 13:34: mouth - (PRESERVISI 33 daily Externa ON AREDS 2 l OR) Metoprolol Yes 25mg Take 0.5 Fletcher sey Tartrate 5-26 tablets Seybold (LOPRESSOR) 13:34: (25 mg - 50 MG oral 33 total) by Exte rna Tablet mouth 2 l times daily Atorvastati Yes 20mg Take 1 Marlys ey n Calcium 5-26 tablet (20 Seyb old 20 MG oral 13:34: mg total) - Tablet 33 by mouth Externa daily l Cholestyram Yes 4g Take 1 Marlys ey ine 4 5-26 packet (4 Seybold GM/DOSE 13:34: g total) - oral Powder 33 by mouth Exte rna daily l Turmeric Yes 1{capsu Take 1 Marlys ey 500 MG oral 5-26 le} capsule by ybold Capsule 13:34: mouth - 33 daily Externa l Ascorbic Yes 1000mg Take 1 Kelse y Acid 5-26 tablet Seybold (Vitamin C) 13:34: (1,000 mg - 1000 MG 33 total) by Externa oral Tablet mouth l daily Esomeprazol Yes 20mg Take 1 Marlys ey e Magnesium 5-26 capsule Seybo ld 20 MG oral 13:34: (20 mg - Delayed 33 total) by Externa Release mouth l Capsule every morning (before breakfast) Aspirin 81 Yes 81mg Take 1 Kelse y MG oral 5-26 tablet (81 Seybol d Tablet 13:34: mg total) - Delayed 33 by mouth Externa Response daily l Paupack-3 Yes 1{capsu Take 1 Kelse y 1000 MG 5-26 le} capsule by Seybol d oral 13:34: mouth - Capsule 33 daily Externa l Timolol Yes 1[drp] Place 1 Kelse y Maleate Gel 5-26 drop into Sey bold 0.25 % 13:34: the left - ophthalmic 33 eye daily Exte rna Gel Forming l Solution predniSONE 2022- No 20mg Take 1 Marlys ey (DELTASONE) 02-03 tablet (20 S eybold 20 MG oral 00:00: 00:00 mg total) - tablet 00 :00 by mouth 2 Externa times l daily Cefuroxime 2022- No 500mg Take 1 Fletcher sey Axetil 500 02-03 tablet Seybol d MG oral 00:00: 00:00 (500 mg - Tablet 00 :00 total) by Externa mouth 2 l times daily Benzonatate Yes [id number] 100mg Q.[id number] Take 1 [place] (Tessalon 01-29 [id number] capsule S eybold Perles) 100 00:00: 3D (100 mg - MG oral 00 total) by Externa Capsule mouth 3 l times daily as needed for cough Benzonatate 2022- No [id number] 100mg Q.[id number] Take 1 [place] (Tessalon 01-29 [id number] capsule Seybold Perles) 100 00:00: 00:00 3D (100 mg - MG oral 00 :00 total) by Externa Capsule mouth 3 l times daily as needed for cough Triamcinolo 0 2022- No [id number] 40mg [place] ne 01-26 Seybold Acetonide 16:15: 16:26 - (KENALOG) 00 :00 Externa 40 mg/mL l Triamcinolo 2022- No [id number] 40mg 40 mg, [place]ane ne 01-2616 intramuscu Seybold Acetonide 16:15: 16:26 lar, ONCE, [...] 40 by mouth Externa Response daily l Paupack-3 Yes 1{capsu Take 1 Kelse y 1000 [...] ey Vitamins-Mi 5-16 le} capsule by Se ybold nerals 10:39: mouth - (PRESERVISI 40 daily Externa ON AREDS 2 l OR) Fluticasone Yes [id number] 1{puff} Inhale 1 [place] -Salmeterol 5-16 puff into Sey bold (Advair 00:00: the lungs - Diskus) 00 2 times Externa 250-50 daily l MCG/ACT inhalation AEROSOL POWDER, BREATH ACTIVATED Albuterol Yes [id number] 2{puff} Q.25D Inhale 2 [place] HFA 108 (90 5-16 puffs into Se ybold Base) 00:00: the lungs - MCG/ACT IN 00 every 6 Metal Sash Setter a AERS hours as l needed for wheezing Albuterol Yes [id number] 2{puff} Q.25D Inhale 2 [place] HFA 108 (90 5-16 puffs into Se ybold Base) 00:00: the lungs - MCG/ACT IN 00 every 6 Metal Sash Setter a AERS hours as l needed for wheezing Fluticasone Yes [id number] 1{puff} Inhale 1 [place] -Salmeterol 5-16 puff into Sey bold (Advair 00:00: the lungs - Diskus) 00 2 times Externa 250-50 daily l MCG/ACT inhalation AEROSOL POWDER, BREATH ACTIVATED Albuterol Yes [id number] 2{puff} Q.25D Inhale 2 [place] HFA 108 (90 5-16 puffs into Se ybold Base) 00:00: the lungs - MCG/ACT IN 00 every 6 Metal Sash Setter a AERS hours as l needed for wheezing Fluticasone 2022- No [id number] 1{puff} Inhale 1 [place] -Salmeterol 5-16 06-19 puff into Se ta (Advair 00:00: 00:00 the lungs - Diskus) 00 :00 2 times Externa 250-50 daily l MCG/ACT inhalation AEROSOL POWDER, BREATH ACTIVATED metoprolol Yes 50mg Take 50 mg U nivers tartrate 50 -21 by mouth 2 it y of mg tablet 20:45: (two) [place] 21 times Medical daily. Branch atorvastati Yes 20mg Take 20 mg Univers n 20 mg -21 by mouth ity of tablet 20:45: at [place] 21 bedtime. Medical Branch vit Yes Take by Univers C/ascorb - mouth. ity of sod/multivi 20:45: [place] t-min Medical (VITAMIN Branch C-MULTIVITA MIN-MINERAL ORAL) metoprolol Yes 50mg Take 50 mg U nivers tartrate 50 - by mouth 2 it y of mg tablet 20:45: (two) [place] 21 times Medical daily. Branch atorvastati Yes 20mg Take 20 mg Univers n 20 mg -21 by mouth ity of tablet 20:45: at [place] 21 bedtime. Medical Branch vit Yes Take by Univers C/ascorb - mouth. ity of sod/multivi 20:45: [place] t-min 21 Medical (VITAMIN Branch C-MULTIVITA MIN-MINERAL ORAL) metoprolol 0 Yes 50mg Take 50 mg U nivers tartrate 50 -21 by mouth 2 it y of mg tablet 20:45: (two) [place] 21 times Medical daily. Branch atorvastati Yes 20mg Take 20 mg Univers n 20 mg -21 by mouth ity of tablet 20:45: at [place] 21 bedtime. Medical Branch vit Yes Take by Univers C/ascorb - mouth. ity of sod/multivi 20:45: [place] t-min 21 Medical (VITAMIN Branch C-MULTIVITA MIN-MINERAL ORAL) Immunizations Ordered Immunization Filled Immunization Date Status Commen ts Source Name Name Seasonal Trivalent 2019-07-06 Completed [place] Seybold Influenza Vaccine, 00:00:00 - Exte rnal Adjuvanted, Preserve Pneumococcal Vaccine, 2019-07-06 Completed Fletcher y Seybold Polysaccharide 00:00:00 - External Seasonal Trivalent 2019-07-06 Completed [place] Seybold Influenza Vaccine, 00:00:00 - Exte rnal Adjuvanted, Preserve Pneumococcal Vaccine, 2019-07-06 Completed Fletcher y Seybold Polysaccharide 00:00:00 - External Seasonal Trivalent 2019-07-06 Completed [place] Seybold Influenza Vaccine, 00:00:00 - Exte rnal Adjuvanted, Preserve Pneumococcal Vaccine, 2019-07-06 Completed Fletcher y Seybold Polysaccharide 00:00:00 - External Tdap- (Boostrix, 2019-01-04 Completed [place]ane Matthews eybold Adacel) 00:00:00 - External Tdap- (Boostrix, 2019-01-04 Completed [place] Matthews eybold Adacel) 00:00:00 - External Tdap- (Boostrix, 2019-01-04 Completed [place] S eybold Adacel) 00:00:00 - External Seasonal Trivalent 2018-06-29 Completed [place] Seybold Influenza Vaccine, 00:00:00 - Exte rnal Adjuvanted, Preserve Pneumococcal Vaccine, 2018-06-29 Completed Fletcher sey Seybold Conjugate 13 00:00:00 - External Seasonal Trivalent 2018-06-29 Completed [place] Seybold Influenza Vaccine, 00:00:00 - Exte rnal Adjuvanted, Preserve Pneumococcal Vaccine, 2018-06-29 Completed Fletcher y Seybold Conjugate 13 00:00:00 - External Seasonal Trivalent 2018-06-29 Completed [place] Seybold Influenza Vaccine, 00:00:00 - Exte rnal Adjuvanted, Preserve Pneumococcal Vaccine, 2018-06-29 Completed Fletcher sey Seybold Conjugate 13 00:00:00 - External Influenza Virus 2016-09-23 Completed [place] Se ybold Vaccine, High Dose, 00:00:00 - Ext ernal Age 65 And Up Influenza Virus 2016-09-23 Completed [place] Se ybold Vaccine, High Dose, 00:00:00 - Ext ernal Age 65 And Up Influenza Virus 2016-09-23 Completed [place] Se ybold Vaccine, High Dose, 00:00:00 - Ext ernal Age 65 And Up Influenza Virus 2013-11-02 Completed [place] Se ybold Vaccine, High Dose, 00:00:00 - Ext ernal Age 65 And Up Influenza Virus 2013-11-02 Completed [place] Se ybold Vaccine, High Dose, 00:00:00 - Ext ernal Age 65 And Up Influenza Virus 2013-11-02 Completed [place] Se ybold Vaccine, High Dose, 00:00:00 - Ext ernal Age 65 And Up Shingles SQ 2013-03-13 Completed [place] Seybol d (Zostavax) 00:00:00 - External Shingles SQ 2013-03-13 Completed [place] Seybol d (Zostavax) 00:00:00 - External Shingles SQ 2013-03-13 Completed [place] Seybol d (Zostavax) 00:00:00 - External Influenza Virus 2012-09-16 Completed [place] Se ybold Vaccine, Unspecified 00:00:00 - Ex ternal Formulation Influenza Virus 2012-09-16 Completed [place] Se ybold Vaccine, Unspecified 00:00:00 - Ex ternal Formulation Influenza Virus 2012-09-16 Completed Sloaen Se ybold Vaccine, Unspecified 00:00:00 - Ex ternal Formulation pneumococcal, 2011-06-30 Completed [place] Ceballosyb old unspecified 00:00:00 - External formulation pneumococcal, 2011-06-30 Completed [place] Ceballosyb old unspecified 00:00:00 - External formulation pneumococcal, 2011-06-30 Completed [place] Ceballosyb old unspecified 00:00:00 - External formulation Influenza Virus 2011-06-24 Completed [place] Se ybold Vaccine, Unspecified 00:00:00 - Ex ternal Formulation Influenza Virus 2011-06-24 Completed [place] Se ybold Vaccine, Unspecified 00:00:00 - Ex ternal Formulation Influenza Virus 2011-06-24 Completed [place] Se ybold Vaccine, Unspecified 00:00:00 - Ex ternal Formulation Influenza Virus 2010-07-01 Completed [place] Se ybold Vaccine, Unspecified 00:00:00 - Ex ternal Formulation Influenza Virus 2010-07-01 Completed [place] Se ybold Vaccine, Unspecified 00:00:00 - Ex ternal Formulation Influenza Virus 2010-07-01 Completed [place] Se ybold Vaccine, Unspecified 00:00:00 - Ex ternal Formulation Influenza Virus 2008-07-14 Completed [place] Ceballos ybold Vaccine, Unspecified 00:00:00 - Ex ternal Formulation Influenza Virus 2008-07-14 Completed [place] Ceballos ybold Vaccine, Unspecified 00:00:00 - Ex ternal Formulation Influenza Virus 2008-07-14 Completed [place] Ceballos ybold Vaccine, Unspecified 00:00:00 - Ex ternal Formulation Influenza Virus 2006-06-20 Completed [place] Ceballos ybold Vaccine, Unspecified 00:00:00 - Ex ternal Formulation Influenza Virus 2006-06-20 Completed [place] Ceballos ybold Vaccine, Unspecified 00:00:00 - Ex ternal Formulation Influenza Virus 2006-06-20 Completed [place] Ceballos ybold Vaccine, Unspecified 00:00:00 - Ex ternal Formulation Vital Signs Vital Name Observation Time Observation Value Comments Source Systolic blood 2023-03-01 20:28:00 124 mm[Hg] [place] Seybold - pressure External Diastolic blood 2023-03-01 20:28:00 64 mm[Hg] Asher boo Seybold - pressure External Heart rate 2023-03-01 20:28:00 67 /min [place] Jessica eybold - External Body temperature 2023-03-01 20:28:00 36.61 Xin Marlys diallo Seybold - External Respiratory rate 2023-03-01 20:28:00 14 /min Marlys ey Seybold - External Body height 2023-03-01 20:28:00 177.8 cm [place] Jessica eybold - External Body weight 2023-03-01 20:28:00 104.327 kg [place] Jessica eybold - External BMI 2023-03-01 20:28:00 33.00 kg/m2 [place] Jessica imanibold - External Oxygen saturation in 2023-03-01 20:28:00 99 /min [place] Pierson - Arterial blood by External Pulse oximetry Systolic blood 2023-02-05 18:32:00 151 mm[Hg] [place] Ceballosybold - pressure External Diastolic blood 2023-02-05 18:32:00 72 mm[Hg] Fletcherse y Seybold - pressure External Heart rate 2023-02-05 18:32:00 70 /min [place] Matthews eybold - External Body temperature 2023-02-05 18:32:00 36.67 Xin Marlys diallo Seybold - External Respiratory rate 2023-02-05 18:32:00 19 /min Marlys diallo Seybold - External Body height 2023-02-05 18:32:00 177.8 cm [place] Matthews eybold - External Body weight 2023-02-05 18:32:00 107.049 kg [place] Matthews eybold - External BMI 2023-02-05 18:32:00 33.86 kg/m2 [place] Matthews eybold - External Oxygen saturation in 2023-02-05 18:32:00 97 /min [place] Pierson - Arterial blood by External Pulse oximetry Systolic blood 2023-01-26 15:35:00 130 mm[Hg] [place] Seybold - pressure External Diastolic blood 2023-01-26 15:35:00 62 mm[Hg] Asher y Seybold - pressure External Heart rate 2023-01-26 15:35:00 89 /min [place] diallobold - External Body temperature 2023-01-26 15:35:00 36.56 Xin Marlys diallo Seybold - External Body height 2023-01-26 15:35:00 177.8 cm [place] Matthews eybold - External Body weight 2023-01-26 15:35:00 104.781 kg [place] Matthews eybold - External BMI 2023-01-26 15:35:00 33.15 kg/m2 [place] Matthews eybold - External Body weight 2020-10-03 20:43:00 102.967 kg [facility] BMI 2020-10-03 20:43:00 32.57 kg/m2 [facility] Systolic blood 2020-10-03 20:43:00 108 mm[Hg] Univer sity of pressure [facility] Diastolic blood 2020-10-03 20:43:00 68 mm[Hg] Unive rsity of pressure [facility] Heart rate 2020-10-03 20:43:00 77 /min [facility] Body height 2020-10-03 20:43:00 177.8 cm [facility] Procedures Procedure Date / Time Performed Performing Clinician Nicolas e XR FEMUR 2 VW RIGHT 2020-10-03 21:17:35 Álvaro Sánchez [facility] Plan of Care Planned Activity Planned [...] [facility] [code = CT Colonography [facility] (combo)] Future Scheduled 1947 Screening for malignant [facility] 00:00:00 neoplasm of colon Medical Ce [facility]ter (procedure) [code = 018026993] Future Scheduled 1947 Screening for malignant [facility] 00:00:00 neoplasm of colon Medical Ce nter (procedure) [code = 708297014] Future Scheduled 1947 Screening for malignant [facility] 00:00:00 neoplasm of colon Medical Ce nter (procedure) [code = 824194351] Future Scheduled 1947 Screening for malignant [facility] 00:00:00 neoplasm of colon Medical Ce nter (procedure) [code = 520859542] Future Scheduled 1947 Sigmoidoscopy [facility]code [facility] Cent[facility] Future Scheduled 1947 CT Colonography (combo) [facility] 00:00:00 [code = CT Colonography [facility] (combo)] Future Scheduled 1947 CT Colonography (combo) [facility] 00:00:00 [code = CT Colonography [facility] (combo)] Future Scheduled 1947 Screening for malignant [facility] 00:00:00 neoplasm of colon Medical Ce nter (procedure) [code = 717080872] Future Scheduled 1947 Screening for malignant [facility] 00:00:00 neoplasm of colon Medical Ce nter (procedure) [code = 976606747] Future Scheduled 1947 Screening for malignant [facility] 00:00:00 neoplasm of colon Medical Ce nter (procedure) [code = 831890455] Future Scheduled 1947 Screening for malignant [facility] 00:00:00 neoplasm of colon Medical Ce nter (procedure) [code = 201825301] Future Scheduled 1947 Sigmoidoscopy [facility]code [facility]] Medical Cente r Future Scheduled 1947 Screening for malignant [facility] 00:00:00 neoplasm of colon Medical Ce nter (procedure) [code = 299501882] Future Scheduled 1947 Screening for malignant [facility] 00:00:00 neoplasm of colon Medical Ce nter (procedure) [code = 319747217] Future Scheduled 1947 CT Colonography (combo) [facility] 00:00:00 [code = CT Colonography [facility] (combo)] Future Scheduled 1947 Screening for malignant [facility] 00:00:00 neoplasm of colon Medical Ce nter (procedure) [code = 509300512] Future Scheduled 1947 Screening for malignant [facility] 00:00:00 neoplasm of colon Medical Ce nter (procedure) [code = 654978997] Future Scheduled 1947 Screening for malignant [facility] 00:00:00 neoplasm of colon Medical Ce nter (procedure) [code = 360161643] Future Scheduled 1947 Screening for malignant [facility] 00:00:00 neoplasm of colon Medical Ce nter (procedure) [code = 246944490] Future Scheduled 1947 Sigmoidoscopy [facility]code [facility]] Medical Cente r Future Scheduled 1947 Screening for malignant [facility] 00:00:00 neoplasm of colon Medical Ce [facility]ter (procedure) [code = 382087514] Future Scheduled 1947 CT Colonography (combo) [facility] 00:00:00 [code = CT Colonography [facility] (combo)] Future Scheduled 1947 Screening for malignant [facility] 00:00:00 neoplasm of colon Medical Ce nter (procedure) [code = 475312863] Future Scheduled 1947 Screening for malignant [facility] 00:00:00 neoplasm of colon Medical Ce nter (procedure) [code = 746054178] Future Scheduled 1947 Screening for malignant [facility] 00:00:00 neoplasm of colon Medical Ce nter (procedure) [code = 544146573] Future Scheduled 1947 Screening for malignant [facility] 00:00:00 neoplasm of colon Medical Ce nter (procedure) [code = 564037636] Future Scheduled 1947 Screening for malignant [facility] 00:00:00 neoplasm of colon Medical Ce nter (procedure) [code = 885347144] Future Scheduled 1947 Sigmoidoscopy [facility]code [facility] S[facility]oscopy] Medical Cente r Future Scheduled 1947 Sigmoidoscopy [code [facility] S[facility]oidoscopy] Medical Cente r Future Scheduled 1947 CT Colonography (combo) [facility] 00:00:00 [code = CT Colonography [facility] (combo)] Future Scheduled 1947 Screening for malignant [facility] 00:00:00 neoplasm of colon Medical Ce nter (procedure) [code = 360330885] Future Scheduled 1947 Screening for malignant [facility] 00:00:00 neoplasm of colon Medical Ce nter (procedure) [code = 603549148] Future Scheduled 1947 Screening for malignant [facility] 00:00:00 neoplasm of colon Medical Ce nter (procedure) [code = 768996302] Future Scheduled 1947 Screening for malignant [facility] Test 00:00:00 neoplasm of colon Medical Ce nter (procedure) [code = 216586981] Future Scheduled 1945 Sigmoidoscopy [code [facility]] Medical Cente r Encounters Start End Encounter Admission Attending Care Care Encounter Source Date/Time Date/Time Type Type Clinicians Facility Department ID 2021-10-27 Outpatient VIRGINIA ANGEL Surgery [id number] [facility] 16:59:33 BALJINDER 2023-08-31 2023-08-31 Outpatient [place] FUENTES [id number] [place] 11:15:00 11:15:00 KMI Seybol d 2023-04-20 2023-04-20 Outpatient [place] BANUELOS [id number] [place] 13:30:00 13:30:00 SEFERINO Seybol d 2023-03-25 2023-03-25 Outpatient [place] MORALES [id number] [place] 11:30:00 11:30:00 Seybol d 2023-03-25 2023-03-25 Outpatient [place] MORALES [id number] [place] 10:30:00 10:30:00 Seybol d 2023-03-25 2023-03-25 Outpatient [place] MORALES [id number] [place] 10:00:00 10:00:00 Seybol d 2023-03-25 2023-03-25 Outpatient [place] MORALES [id number] [place] 09:00:00 09:00:00 Seybol d 2023-03-23 2023-03-23 Outpatient TRED76 [place] MORALES [id number] [place] 16:15:00 16:15:00 Seybol d 2023-03-23 2023-03-23 Outpatient S[place] BANUELOS [id number] [place] 15:30:00 15:30:00 SEFERINO Seybol d 2023-03-22 2023-03-22 Outpatient [place] FUENTES [id number] [place] 00:00:00 00:00:00 KIM Seybol d 2023-03-02 2023-03-02 Outpatient LAB90 [place] MORALES [id number] [place] 12:50:00 12:50:00 Seybol d 2023-03-01 2023-03-01 Outpatient [place] FUENTES [id number] [place] 15:30:00 15:30:00 KIM Seybol d 2023-02-05 2023-02-05 Outpatient [place] FUENTES [id number] [place] 13:45:00 13:45:00 KIM Seybol d 2023-02-04 2023-02-04 Outpatient CRISTINA HOOPER [id number] [place] 16:30:00 16:30:00 Seybol d 2023-02-03 2023-02-03 Outpatient S[place] ROBLES [id number] [place] 08:50:00 08:50:00 ASHANTI Seybol d 2023-02-02 2023-02-02 Outpatient [place] FUENTES [id number] [place] 00:00:00 00:00:00 KIM Seybol d 2023-01-29 2023-01-29 Outpatient [place] FUENTES [id number] [place] 00:00:00 00:00:00 KIM Seybol d 2023-01-29 2023-01-29 Outpatient SLOANE FUENTES [place] [id number] [place] 00:00:00 00:00:00 KIM Seybol d 2023-01-29 2023-01-29 Outpatient SLOANE FUENTES [place] [id number] [place] 00:00:00 00:00:00 KIM Seybol d 2023-01-28 2023-01-28 Outpatient LAB90 S[place]ANE SLOANE [id number] [place] 11:55:00 11:55:00 Seybol d 2023-01-26 2023-01-26 Outpatient LAB90 S[place] MORALES [id number] [place] 11:30:00 11:30:00 Seybol d 2023-01-26 2023-01-26 Outpatient GINA [place] M[place]ALES [id number] [place] 10:45:00 10:45:00 KIM Seybol d 2021-05-14 2021-05-14 [facility] [id number] 14:30:00 14:30:00 [facility] 2020-10-03 2020-10-[address] [facility] [id number] [facility] 15:17:35 23:59:00 Encounter [facility] [id number] ity of Surgical [id number] [place] as Specialti [id number] Ut dical es [address] 2020-10-03 2020-10-03 [facility] [id number] [facility] 15:00:00 15:00:00 [facility] 2020-10-03 2020-10-[address] [facility] [id number] Univers 14:31:25 14:46:25 Visit [facility] [id number] it y of Surgical [id number] [place] as Specialti [id number] Ut dical es [address] [place] Results Test Description Test Time Test Comments Results Result Sourc e Comments XR FEMUR 2 VW 2020-10-03 No signs of [facility] of RIGHT 21:17:52 fracture or [place] [facility] dislocation no Branch soft tissue masses or lesions noted
[2023-03-25] MEDS ORDERED: ENOXAPARIN 100 MG/ML SYR SQ ONE (02:14)
[2023-03-25] MEDS ORDERED: ASPIRIN 81 MG CHEWABLE TABLET ONE (02:14)
[2023-03-25 02:15] LABS: Absolute Lymphocytes (CBC) 1.7 K/uL (0.7-4.9); Lymphocytes % 11.7 % (15.3-44.8); MCV 84.2 fL (80-100); MPV 8.6 fL (7.6-11.3); RBC Red Blood Cell Count 5.45 M/uL (4.33-5.43)
[2023-03-25 02:34] LABS: Albumin 3.4 g/dL (3.4-5.0); Bilirubin Direct 0.2 mg/dL (0-0.2); Bilirubin Indirect, Calculated 0.3 mg/dL (0.2-0.8); Bilirubin Total 0.5 mg/dL (0.2-1.0); Magnesium 2.1 mg/dL (1.6-2.4); Potassium 3.7 mEq/L (3.5-5.1); Protein, Total 6.6 g/dL (6.4-8.2)
[2023-03-25 02:37] LABS: Troponin High Sensitivity 864.7 pg/mL (<58.9)
[2023-03-25 04:46] LABS: Protime INR 0.83
--- NOTE | 2023-03-25 05:04 | EDPHYS ---
Physician Documentation [facility] Name: Romero Schilling Age: 77 yrs Sex: Male : 1945 Arrival Date: 03/25/2023 Time: 01:39 Bed 7 Private MD: ED Physician Dion Sheppard HPI: 03/25 01:56 This 77 yrs old Male presents to ER via Unassigned with complaints of Chest sp4 Pain. 01:56 77-year-old male presents with moderate to severe midsternal chest pain starting at sp4 midnight on awakening today. Patient states pains have improved to some extent on arrival to the emergency room. Patient has extensive history of coronary artery disease, CABG in 2006 at [facility], hypertension, hyperlipidemia. Also recent diagnosis of COPD secondary to prior smoking and history of GERD patient's medications include -albuterol, vitamin C, aspirin 81 mg daily, atorvastatin 20, cholestyramine, esomeprazole 20 mg daily, Advair, Xyzal, metoprolol 25 mg twice a day, prednisone acetate eyedrops, tumeric. Historical: - Allergies: 01:43 Lisinopril; ha1 - Home Meds: 01:43 atorvastatin 10 mg Oral tab 1 tab once daily [Active]; Cholestyramine Light 4 gram Oral ha1 powd 1 scoop 2 times per day [Active]; metoprolol tartrate 25 mg Oral tab 1 tab 2 times per day [Active]; - PMHx: 01:43 Hypercholesterolemia; Hypertensive disorder; Myocardial infarction; ha1 - PSHx: 01:43 heart bypass; ha1 - Immunization history:: Adult Immunizations unknown. - Social history:: Smoking status: Patient/guardian denies using tobacco, the patient reports quitting approximately 2017 years ago. ROS: 04:54 Constitutional: Negative for fever, chills, and weight loss, Eyes: Negative for injury, sp4 pain, redness, and discharge, ENT: Negative for injury, pain, and discharge, Neck: Negative for injury, pain, and swelling, Cardiovascular: Negative for palpitations, and edema, positive for midsternal chest pressure Respiratory: Negative for shortness of breath, cough, wheezing, and pleuritic chest pain, Abdomen/GI: Negative for abdominal pain, nausea, vomiting, diarrhea, and constipation, Back: Negative for injury and pain, : Negative for injury, bleeding, discharge, and swelling, MS/Extremity: Negative for injury and deformity, Skin: Negative for injury, rash, and discoloration, Neuro: Negative for headache, weakness, numbness, tingling, and seizure, Psych: Negative for depression, anxiety, Allergy/Immunology: Negative for hives, rash, and allergies Endocrine: Negative for neck swelling, polydipsia, polyuria, polyphagia, and weight changes Hematologic/Lymphatic: Negative for swollen nodes, abnormal bleeding, and unusual bruising Exam: 04:54 Constitutional: This is a well developed, well nourished patient who is awake, alert, sp4 and in no acute distress. Head/Face: Normocephalic, atraumatic. Eyes: Pupils equal round and reactive to light, extra-ocular motions intact. Lids and lashes normal. Conjunctiva and sclera are not injected. Cornea within normal limits. Periorbital areas with no swelling, redness, or edema. ENT: Nares patent. No nasal discharge, no septal abnormalities noted. Tympanic membranes are normal and external auditory canals are clear. Oropharynx with no redness, swelling, or masses, exudates, or evidence of obstruction, uvula midline. Mucous membranes moist. Neck: Trachea midline, no thyromegaly or masses palpated, and no cervical lymphadenopathy. Supple, full range of motion without nuchal rigidity, or vertebral point tenderness. Chest/axilla: Normal chest wall appearance and motion. Nontender with no deformity. No lesions are appreciated. Cardiovascular: Regular rate and rhythm with a normal S1 and S2. No gallops, murmurs, or rubs. Normal PMI, no JVD. No pulse deficits. Respiratory: Lungs have equal breath sounds bilaterally, clear to auscultation and percussion. No rales, rhonchi or wheezes noted. No increased work of breathing, no retractions or nasal flaring. Abdomen/GI: Soft, non-tender, with normal bowel sounds. No distension or tympany. No guarding or rebound. No evidence of tenderness throughout. Back: No spinal tenderness. No costovertebral tenderness. Skin: Warm, dry with normal turgor. Normal color with no rashes, no lesions, and no evidence of cellulitis. MS/ Extremity: Pulses equal, no cyanosis. Neurovascular intact. Full, normal range of motion. Neuro: Awake and alert, GCS 15, oriented to person, place, time, and situation. Cranial nerves II-XII grossly intact. Motor strength 5/5 in all extremities. Sensory grossly intact. Psych: Awake, alert, with orientation to person, place and time. Behavior, mood, and affect are within normal limits 04:54 ECG was reviewed by the Attending Physician. EKG time 0 158 better is normal sinus rhythm with a rate of 70, no ST elevation or depression, no ectopy, respiratory motion artifact. Vital Signs: 01:43 BP 129 / 71; Pulse 74; Resp 19 S; Temp 98.2; Pulse Ox 96% on R/A; Weight 95.25 kg; ha1 Height 5 ft. 10 in. ; 02:23 BP 164 / 88; Pulse 76; Resp 17 S; Pulse Ox 97% ; ha1 02:45 BP 129 / 67; Pulse 65; Resp 20 S; Pulse Ox 95% on R/A; ha1 03:15 BP 129 / 69; Pulse 66; Resp 19 S; Pulse Ox 96% on R/A; ha1 03:57 BP 121 / 60; Pulse 63; Resp 18 S; Pulse Ox 96% on R/A; ha1 05:00 BP 129 / 70; Pulse 70; Resp 18 S; Pulse Ox 95% on R/A; ha1 01:43 Body Mass Index 30.13 (95.25 kg, 177.8 cm) ha1 MDM: 01:59 Patient medically screened. sp4 04:54 Differential diagnosis: acute myocardial infarction, acute pericarditis, anxiety, sp4 coronary artery disease chest wall pain, congestive heart failure esophagitis, gastritis. HEART Score: History: Highly Suspicious (2), ECG: Normal (0), Age: > or = 65 years (2), Risk Factors: > or = 3 Risk factors for atherosclerotic disease (2), Troponin: > or = 3 x Normal Limit (2), Total Score = 8. The patient was given aspirin in the Emergency Department. Data reviewed: vital signs, nurses notes, old medical records, lab test result(s), EKG, radiologic studies, plain films. 05:01 ED course: Troponin 864, x-ray revealed no acute findings in the chest. EKG reveals no sp4 sign of ST elevation or depression. Based on the patient's history patient would definitely warrant assessment for left heart cath and PCI. Since our Systems Analyst Engineer at this hospital is out of order patient was discussed with [facility] and accepted there for evaluation for NSTEMI and PCI. . 03/25 01:49 Order name: Basic Metabolic Panel; Complete Time: 03:10 03/25 01:49 Order name: CBC with Diff; Complete Time: 03:10 03/25 01:49 Order name: LFT's; Complete Time: 03:10 03/25 01:49 Order name: Magnesium; Complete Time: 03:11 03/25 01:49 Order name: NT PRO-BNP; Complete Time: 03:10 03/25 01:49 Order name: PT-INR; Complete Time: 05:03 03/25 01:49 Order name: Troponin HS; Complete Time: 03:10 03/25 03:23 Order name: Troponin High Sensitivity; Complete Time: 07:06 03/25 03:34 Order name: SARS-COV-2 RT PCR; Complete Time: 07:06 03/25 01:49 Order name: XRAY Chest (1 view) 03/25 01:49 Order name: EKG; Complete Time: 01:49 03/25 01:49 Order name: Cardiac monitoring; Complete Time: 02:01 03/25 01:49 Order name: EKG - Nurse/Tech; Complete Time: 02:01 03/25 01:49 Order name: IV Saline Lock; Complete Time: 02:01 03/25 01:49 Order name: Labs collected and sent; Complete Time: 02:01 03/25 01:49 Order name: O2 Per Protocol; Complete Time: 02:01 03/25 01:49 Order name: O2 Sat Monitoring; Complete Time: 02:01 EC:54 Rate is 70 beats/min. Rhythm is regular, Normal Sinus Rhythm. QRS Ary is Normal. MD sp4 interval is normal. QRS interval is normal. QT interval is normal. T waves are Normal. No ST changes noted. Clinical impression: No evidence of ischemia. Interpreted by me. Administered Medications: 02:10 Drug: Aspirin PO Chewable Tablet 324 mg Route: PO; ha1 02:45 Follow up: Response: No adverse reaction ha1 02:10 Drug: Enoxaparin Sub-Q 100 mg Route: Sub-Q; Site: abdomen; ha1 02:45 Follow up: Response: No adverse reaction ha1 Disposition Summary: 03/25/23 05:03 Transfer Ordered Transfer Location: [facility] sp4 Reason: Higher level of care sp4 Condition: Fair sp4 Problem: new sp4 Symptoms: have improved sp4 Accepting Physician: [facility] Attending (03/25/23 05:26) [email or web address] Diagnosis - NSTEMI, acute coronary syndrome sp4 Discharge Instructions: - Discharge Summary Sheet rv1 Forms: - SBAR form rv1 - Medication Reconciliation Form sp4 Signatures: Dispatcher [employer] EDPiotr Roldan RN RN jb4 Carla Zamudio RN RN ha1 Dion Sheppard MD MD sp4 Corrections: (The following items were deleted from the chart) 05:26 05:03 [facility] Attending sp4 jb4
--- NOTE | 2023-03-25 05:04 | ER ---
Nurse's Notes [facility] Name: Romero Schilling Age: 77 yrs Sex: Male : 1945 Arrival Date: 03/25/2023 Time: 01:39 Bed 7 Private MD: Diagnosis: NSTEMI, acute coronary syndrome Presentation: 03/25 01:43 Chief complaint: Patient states: I started to feel chest pain around midnight, I ha1 thought it was going to go away but it has not. The pain has been decreased , but I am concern I might be having an FL. 01:43 Coronavirus screen: Vaccine status: Patient reports being unvaccinated. Ebola Screen: ha1 No symptoms or risks identified at this time. Initial Sepsis Screen: Does the patient meet any 2 criteria? No. Patient's initial sepsis screen is negative. Does the patient have a suspected source of infection? No. Patient's initial sepsis screen is negative. Risk Assessment: Do you want to hurt yourself or someone else? Patient reports no desire to harm self or others. Onset of symptoms was March 25, 2023. 01:43 Method Of Arrival: Ambulatory ha1 01:43 Acuity: LEANDER 3 ha1 Triage Assessment: 01:43 General: Appears comfortable, Behavior is calm, cooperative. Pain: Complains of pain in ha1 chest Pain does not radiate. Pain currently is 6 out of 10 on a pain scale. Quality of pain is described as pressure, Pain began 2 hours ago. Neuro: Level of Consciousness is awake, alert, obeys commands, Oriented to person, place, time, situation. Cardiovascular: Heart tones S1 S2 present Patient's skin is warm and dry. Rhythm is sinus rhythm. Respiratory: Airway is patent Respiratory effort is even, unlabored, Respiratory pattern is regular, symmetrical. GI: No signs and/or symptoms were reported involving the gastrointestinal system. Abdomen is round non-distended, obese. : No signs and/or symptoms were reported regarding the genitourinary system. Derm: Skin is dry, Skin is normal, redness on the bilateral legs. Musculoskeletal: Circulation, motion, and sensation intact. Range of motion: intact in all extremities. Historical: - Allergies: 01:43 Lisinopril; ha1 - Home Meds: 01:43 atorvastatin 10 mg Oral tab 1 tab once daily [Active]; Cholestyramine Light 4 gram Oral ha1 powd 1 scoop 2 times per day [Active]; metoprolol tartrate 25 mg Oral tab 1 tab 2 times per day [Active]; - PMHx: : Hypercholesterolemia; Hypertensive disorder; Myocardial infarction; ha1 - PSHx: :43 heart bypass; ha1 - Immunization history:: Adult Immunizations unknown. - Social history:: Smoking status: Patient/guardian denies using tobacco, the patient reports quitting approximately 2017 years ago. Screenin: Abuse screen: Denies threats or abuse. Denies injuries from another. Nutritional ha1 screening: No deficits noted. Tuberculosis screening: No symptoms or risk factors identified. :43 [facility] ED Fall Risk Assessment (Adult) History of falling in the last 3 months, ha1 including since admission No falls in past 3 months (0 pts) Confusion or Disorientation No (0 pts) Intoxicated or Sedated No (0 pts) Impaired Gait No (0 pts) Mobility Assist Device Used No (0 pt) Altered Elimination No (0 pt) Score/Fall Risk Level 0 - 2 = Low Risk Oriented to surroundings, Maintained a safe environment, Educated pt \T\ family on fall prevention, incl call for assistance when getting out of bed. Assessment: :43 Reassessment: see triage assessment. ha1 02:45 Reassessment: Patient and/or family updated on plan of care and expected duration. Pain ha1 level reassessed. Patient is alert, oriented x 3, equal unlabored respirations, skin warm/dry/pink. 03:30 Reassessment: Patient and/or family updated on plan of care and expected duration. Pain ha1 level reassessed. Patient is alert, oriented x 3, equal unlabored respirations, skin warm/dry/pink. Patient states symptoms have improved. 04:21 Reassessment: report given to receiving nurse Kobi RN. ha1 04:30 Reassessment: Patient and/or family updated on plan of care and expected duration. Pain ha1 level reassessed. Patient is alert, oriented x 3, equal unlabored respirations, skin warm/dry/pink. 05:00 Reassessment: Patient and/or family updated on plan of care and expected duration. Pain ha1 level reassessed. Patient is alert, oriented x 3, equal unlabored respirations, skin warm/dry/pink. Patient states symptoms have improved. Vital Signs: 01:43 BP 129 / 71; Pulse 74; Resp 19 S; Temp 98.2; Pulse Ox 96% on R/A; Weight 95.25 kg; ha1 Height 5 ft. 10 in. ; 02:23 BP 164 / 88; Pulse 76; Resp 17 S; Pulse Ox 97% ; ha1 02:45 BP 129 / 67; Pulse 65; Resp 20 S; Pulse Ox 95% on R/A; ha1 03:15 BP 129 / 69; Pulse 66; Resp 19 S; Pulse Ox 96% on R/A; ha1 03:57 BP 121 / 60; Pulse 63; Resp 18 S; Pulse Ox 96% on R/A; ha1 05:00 BP 129 / 70; Pulse 70; Resp 18 S; Pulse Ox 95% on R/A; ha1 01:43 Body Mass Index 30.13 (95.25 kg, 177.8 cm) ha1 ED Course: 01:40 Patient arrived in ED. ja2 01:43 Patient maintains SpO2 saturation greater than 95% on room air. ha1 01:43 Patient has correct armband on for positive identification. Placed in gown. Bed in low ha1 position. Call light in reach. Side rails up X 1. Adult w/ patient. Client placed on continuous cardiac and pulse oximetry monitoring. NIBP monitoring applied. 01:43 Arm band placed on right wrist. ha1 01:48 Dion Sheppard MD is Attending Physician. sp4 01:55 Inserted saline lock: 22 gauge in left antecubital area, using aseptic technique. Blood ha1 collected. 02:07 XRAY Chest (1 view) In Process Unspecified. EDMS 02:10 Carla Zamudio, CLAUDINE is Primary Nurse. ha1 02:10 Basic Metabolic Panel Sent. ha1 02:10 CBC with Diff Sent. ha1 02:10 LFT's Sent. ha1 02:10 Magnesium Sent. ha1 02:10 NT PRO-BNP Sent. ha1 02:10 PT-INR Sent. ha1 02:10 Troponin HS Sent. ha1 02:16 Triage completed. ha1 03:28 Initiated transfer with Sindhu at [facility]. rv1 03:46 SARS-COV-2 RT PCR Sent. rv1 03:55 SARS-COV-2 RT PCR Sent. rv1 04:02 Pt accepted to [facility] by Dr. George. rv1 05:00 Provided Education on: need for transfer. ha1 05:26 No provider procedures requiring assistance completed. ha1 05:26 Patient transferred, IV remains in place. ha1 Administered Medications: 02:10 Drug: Aspirin PO Chewable Tablet 324 mg Route: PO; ha1 02:45 Follow up: Response: No adverse reaction ha1 02:10 Drug: Enoxaparin Sub-Q 100 mg Route: Sub-Q; Site: abdomen; ha1 02:45 Follow up: Response: No adverse reaction ha1 Medication: 02:22 VIS not applicable for this client. ha1 Outcome: 05:03 ER care complete, transfer ordered by . sp4 05:26 Patient left the ED. jb4 05:26 Transferred by ground EMS to [facility] Transfer form completed. ha1 05:26 Condition: stable 05:26 Discharge instructions given to patient, family, Instructed on the need for transfer, Demonstrated understanding of instructions. Signatures: Dispatcher [employer] EDMS Piotr Sandy, RN RN jb4 Neida Azul Heidy, RN RN ha1 Myranda Anglin rv1 Dion Sheppard MD MD sp4
[2023-03-25 05:31] VITALS: TEMP 98.2
[2023-03-25 05:36] VITALS: O2SAT 96
[2023-03-25 05:38] VITALS: BP 121/60
--- NOTE | 2023-03-25 15:43 | EKG ---
Test Date: 2023-03-25 Test Time: 01:47:57 Refrigerator Assembler: RV MEASUREMENT RESULTS: Intervals: Rate: 77 TN: 164 QRSD: 90 QT: 386 QTc: 436 [place]: P: 59 TN: 164 QRS: -19 T: 123 INTERPRETIVE STATEMENTS: Normal sinus rhythm with sinus arrhythmia Inferior infarct, age undetermined ST & T wave abnormality, consider lateral ischemia Abnormal ECG Compared to ECG 01/30/2023 18:50:23 ST (T wave) deviation now present Possible ischemia now present Myocardial infarct finding still present Electronically Signed On 03-25-23 15:43:00 CDT by Raudel Mazariegos
--- NOTE | 2023-03-25 15:43 | EKG ---
Test Date: 2023-03-25 Test Time: 01:58:38 Local Superintendent: RV MEASUREMENT RESULTS: Intervals: Rate: 70 MS: 164 QRSD: 96 QT: 402 QTc: 434 [place]: P: 64 MS: 164 QRS: -12 T: 85 INTERPRETIVE STATEMENTS: Normal sinus rhythm with sinus arrhythmia Low voltage QRS Nonspecific ST and T wave abnormality Abnormal ECG Compared to ECG 03/25/2023 01:47:57 Low QRS voltage now present Myocardial infarct finding no longer present Possible ischemia no longer present ST (T wave) deviation still present Electronically Signed On 03-25-23 15:42:56 CDT by Raudel Mazariegos
--- NOTE | 2023-03-25 20:39 | RAD REPORT ---
EXAM DESCRIPTION: RAD - Chest Single View - 03/25/2023 2:05 am CLINICAL HISTORY: The patient is 77 years old and is Male; CHEST PAIN [facility] MAIN TECHNIQUE: Frontal view of the chest. COMPARISON: No relevant prior studies available. FINDINGS: LUNGS: No focal consolidation. PLEURAL SPACE: Unremarkable. No pleural effusion. No pneumothorax. HEART: Unremarkable. No cardiomegaly. MEDIASTINUM: Normal cardiomediastinal silhouette allowing for portable technique. BONES/JOINTS: Unremarkable. IMPRESSION: No acute findings in the chest. Electronically signed by: Isiah Hennessy MD 03/25/2023 2:31 AM CDT Due to temporary technical issues with the PACS/Fluency reporting system, reports are being signed by the in house radiologists without review as a courtesy to insure prompt reporting. The interpreting radiologist is fully responsible for the content of the report.
== END 2023-03-25 05:26 ==
LOC: ER 01:39
DX: I21.4 Non-ST elevation (NSTEMI) myocardial infarction (principal); I24.9 Acute ischemic heart disease, unspecified; I10 Essential (primary) hypertension; I25.2 Old myocardial infarction; Z20.822 Contact with and (suspected) exposure to COVID-19; Z95.1 Presence of aortocoronary bypass graft; Z88.8 Allergy status to other drugs, medicaments and biological substances; Z79.82 Long term (current) use of aspirin
CPT/HCPCS: 93005 ×2; 85025; 80048; 36415; 83735; 85610; 80076; 84484 ×2; 83880; 87635; 71045; 96372; 99285; J1650

== ENCOUNTER 2024-01-03 11:32 | Emergency (ER) | payer OTHER ==
--- NOTE | 2024-01-03 13:09 | ER ---
Nurse's Notes [facility] Name: Romero Schilling Age: 78 yrs Sex: Male : 1945 Arrival Date: 01/03/2024 Time: 11:32 Bed 10 Private MD: Diagnosis: Foreign body in left ear Presentation: 01/02 11:51 Chief complaint: Patient states: feels like the plastic tip of hearing aid came off in ko1 left ear. Coronavirus screen: At this time, the client does not indicate any symptoms associated with coronavirus-19. Ebola Screen: No symptoms or risks identified at this time. Initial Sepsis Screen: Does the patient meet any 2 criteria? No. Patient's initial sepsis screen is negative. Does the patient have a suspected source of infection? No. Patient's initial sepsis screen is negative. Risk Assessment: Do you want to hurt yourself or someone else? Patient reports no desire to harm self or others. Onset of symptoms was January 03, 2024. 11:51 Method Of Arrival: Ambulatory ko1 11:51 Acuity: LEANDER 4 ko1 Triage Assessment: 11:53 General: Appears in no apparent distress. Behavior is calm, cooperative, appropriate ko1 for age. Pain: Complains of pain in left ear. 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 - Infectious Disease History:: Denies. - Social history:: Smoking status: Patient denies any tobacco usage or history of. Screenin:10 [facility] ED Fall Risk Assessment (Adult) History of falling in the last 3 months, me1 including since admission No falls in past 3 months (0 pts) Confusion or Disorientation No (0 pts) Intoxicated or Sedated No (0 pts) Impaired Gait No (0 pts) Mobility Assist Device Used No (0 pt) Altered Elimination No (0 pt) Score/Fall Risk Level 0 - 2 = Low Risk Oriented to surroundings, Provided non-skid footwear, Hourly rounding (assess needs \T\ fall precautionary measures) done. Abuse screen: Denies threats or abuse. Nutritional screening: No deficits noted. Tuberculosis screening: No symptoms or risk factors identified. Assessment: 12:10 General: Appears comfortable, well groomed, well developed, well nourished, Behavior is me1 calm, cooperative, appropriate for age, Reports part of his hearing aid came off and went into his left ear on Wednesday. Pain: Complains of pain in left ear Pain does not radiate. Pain currently is 2 out of 10 on a pain scale. Quality of pain is described as tender, Pain began 2-3 days ago. Is continuous. Neuro: Level of Consciousness is awake, alert, obeys commands, Oriented to person, place, time, situation, Appropriate for age. Cardiovascular: Patient's skin is warm and dry. Respiratory: Airway is patent Respiratory effort is even, unlabored, Respiratory pattern is regular, symmetrical. GI: No signs and/or symptoms were reported involving the gastrointestinal system. : No signs and/or symptoms were reported regarding the genitourinary system. EENT: Reports part of his hearing aid went down into his left ear on Wednesday. . Derm: Skin is intact, is healthy with good turgor, Skin is pink, warm \T\ dry. Musculoskeletal: No signs and/or symptoms reported regarding the musculoskeletal system. Vital Signs: 11:51 BP 149 / 73; Pulse 73; Resp 16; Temp 97; Pulse Ox 100% ; ko1 13:12 BP 142 / 69; Pulse 70; Resp 16; Pulse Ox 98% on R/A; me1 ED Course: 11:35 Patient arrived in ED. mg5 11:39 [facility] jh7 11:39 Ralph Aponte MD is Attending Physician. 7 11:53 Triage completed. ko1 11:53 Arm band placed on right wrist. Patient placed in an exam room, on a stretcher, Patient ko1 notified of wait time. 12:06 Valarie Lambert, CLAUDINE is Primary Nurse. me1 12:10 Patient has correct armband on for positive identification. Bed in low position. Call me1 light in reach. Side rails up X2. Provided Education on: POC. Verbalized understanding. . 12:10 No provider procedures requiring assistance completed. Patient did not have IV access [facility] during this emergency room visit. 13:07 Alejandra Finn MD is Referral Physician. 7 Administered Medications: No medications were administered Medication: 12:10 VIS not applicable for this client. me1 Outcome: 13:08 Discharge ordered by MD. graf 13:13 Discharged to home ambulatory, me1 13:13 Condition: good 13:13 Condition: stable 13:13 Discharge instructions given to patient, Instructed on discharge instructions, follow up and referral plans. Demonstrated understanding of instructions, follow-up care, 13:13 Patient left the ED. me1 Signatures: Salena Rose FNP FNP 7 Maryanne Baca RN RN pb1 Valarie Lambert RN RN me1 Tess Dow mg5
--- NOTE | 2024-01-03 13:09 | EDPHYS ---
Physician Documentation [facility] Name: Romero Schilling Age: 78 yrs Sex: Male : 1945 Arrival Date: 01/03/2024 Time: 11:32 Bed 10 Private MD: ED Physician Ralhp Aponte HPI: 01/02 11:53 This 78 yrs old Male presents to ER via Ambulatory with complaints of Foreign Body In [facility] Ear. 11:53 Patient reports that Wilbur a piece of his hearing aid got stuck in his left ear. He 7 states that he used a Q-tip to attempt to remove the piece but lodged it further in his ear. [facility] 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 - Infectious Disease History:: Denies. - Social history:: Smoking status: Patient denies any tobacco usage or history of. ROS: 11:53 Constitutional: Per HPI 7 Exam: 11:53 Constitutional: This is a well developed, well nourished patient who is awake, alert, jh7 and in no acute distress. Neck: Trachea midline, no thyromegaly or masses palpated, and no cervical lymphadenopathy. Supple, full range of motion without nuchal rigidity, or vertebral point tenderness. No Meningismus. Cardiovascular: Regular rate and rhythm with a normal S1 and S2. No gallops, murmurs, or rubs. Normal PMI, no JVD. No pulse deficits. Respiratory: Lungs have equal breath sounds bilaterally, clear to auscultation and percussion. No rales, rhonchi or wheezes noted. No increased work of breathing, no retractions or nasal flaring. Abdomen/GI: Soft, non-tender, with normal bowel sounds. No distension or tympany. No guarding or rebound. No evidence of tenderness throughout. Skin: Warm, dry with normal turgor. Normal color with no rashes, no lesions, and no evidence of cellulitis. MS/ Extremity: Pulses equal, no cyanosis. Neurovascular intact. Full, normal range of motion. Neuro: Awake and alert, GCS 15, oriented to person, place, time, and situation. Motor strength 5/5 in all extremities. Sensory grossly intact. Normal gait. 11:53 ENT: Ear canal(s): foreign body, Round piece of hearing aid seen deep in the ear canal that is difficult to visualize., swelling, that is moderate, of the left canal, Vital Signs: 11:51 BP 149 / 73; Pulse 73; Resp 16; Temp 97; Pulse Ox 100% ; ko1 13:12 BP 142 / 69; Pulse 70; Resp 16; Pulse Ox 98% on R/A; me1 Procedures: 11:50 Foreign Body Removal: piece of plastic, from the left ear canal, by using alligator [facility] clamps, Unable to retrieve foreign body. MDM: 11:39 Patient medically screened. [facility] 11:50 ED course: Will consult ENT for foreign body removal. [facility] 13:02 Differential diagnosis: Retained foreign body. Data reviewed: vital signs, nurses [facility] notes. Counseling: I had a detailed discussion with the patient and/or guardian regarding the historical points, exam findings, and any diagnostic results supporting the discharge/admit diagnosis, the need for outpatient follow up, an ENT specialist, to return to the emergency department if symptoms worsen or persist or if there are any questions or concerns that arise at home. ED course: Call Dr. Alejandra Finn, ENT, office and schedule the patient an appointment at 2 PM. He was discharged and sent to ENT for foreign body removal.. Administered Medications: No medications were administered Disposition: 19:55 Co-signature as Attending Physician, Ralph Aponte MD I reviewed the patient's care rn provided by the [facility] Provider and agree with the diagnosis and treatment plan. Disposition Summary: 01/03/24 13:08 Discharge Ordered Notes: Location: Home [facility] Problem: new [facility] Symptoms: are unchanged [facility] Condition: Stable [facility] Diagnosis - Foreign body in left ear [facility] Followup: [facility] - With: Alejandra Finn MD - When: Today - Reason: Discharge Instructions: - Discharge Summary Sheet [facility] - Ear Foreign Body [facility] Forms: - Medication Reconciliation Form [facility] - Thank You Letter [facility] - Patient Portal Instructions [facility] - Leadership Thank You Letter [facility] Signatures: Ralph Aponte MD MD rn Hadash, Jennifer, FNP FNP [facility] Maryanne Baca, RN RN ko1
[2024-01-03 13:18] VITALS: TEMP 97
[2024-01-03 13:56] VITALS: BP 142/69; O2SAT 98
== END 2024-01-03 13:13 | disposition home or self-care (01) ==
LOC: ER 11:32
PROC: 09C4XZZ Extirpation of Matter from Left External Auditory Canal, External Approach (ICD-10-PCS; principal; 2024-01-03)
DX: T16.2XXA Foreign body in left ear, initial encounter (principal); Z88.8 Allergy status to other drugs, medicaments and biological substances; Z95.1 Presence of aortocoronary bypass graft
CPT/HCPCS: 99282